=== PATIENT | female | born 1975 | race Caucasian/White ===

== ENCOUNTER 2019-07-06 04:04 | Emergency (ER) | payer OTHER, SELFPAY ==
[2019-07-06] MEDS ORDERED: ONDANSETRON 4 MG/2 ML VIAL ONE (04:27)
[2019-07-06] MEDS ORDERED: NA CHLORIDE 0.9% 1,000 ML ONE (04:27)
[2019-07-06 04:42] LABS: Absolute Lymphocytes (CBC) 1.3 K/uL (0.7-4.9); Basophils % 0.8 % (0-1.3); Hematocrit 39.5 % (36.0-45.0); Lymphocytes % 22.6 % (15.3-44.8); MPV 8.6 fL (7.6-11.3); RBC Red Blood Cell Count 4.41 M/uL (3.86-4.86)
[2019-07-06 04:56] LABS: Albumin 4.2 g/dL (3.4-5.0); Bilirubin Direct 0.2 mg/dL (0-0.2); Bilirubin Total 0.6 mg/dL (0.2-1.0); Potassium 3.7 mmol/L (3.5-5.1); Protein, Total 7.7 g/dL (6.4-8.2)
--- NOTE | 2019-07-06 05:38 | ER ---
Nurse's Notes [facility] Name: Autumn Bhandari Age: 43 yrs Sex: Female : 1975 Arrival Date: 07/06/2019 Time: 04:08 Bed 16 Private MD: Gavino Coffman E Diagnosis: Vomiting, unspecified;Diarrhea, unspecified Presentation: 07/06 04:18 Presenting complaint: Patient states: vomiting, diarrhea \T\ headache since night before aa1 last. Transition of care: patient was not received from another setting of care. Onset of symptoms was July 04, 2019 at 23:00. Risk Assessment: Do you want to hurt yourself or someone else? Patient reports no desire to harm self or others. Initial Sepsis Screen: Does the patient meet any 2 criteria? No. Patient's initial sepsis screen is negative. Does the patient have a suspected source of infection? No. Patient's initial sepsis screen is negative. Care prior to arrival: None. 04:18 Method Of Arrival: Ambulatory aa1 04:18 Acuity: FLETCHER 3 aa1 Triage Assessment: 04:20 General: Appears in no apparent distress. uncomfortable, Behavior is calm, cooperative, aa1 appropriate for age. Historical: - Allergies: 04:20 No Known Allergies; aa1 - Home Meds: 04:20 None [Active]; aa1 - PMHx: 04:20 None; aa1 - PSHx: 04:20 ectopic ; Tubal ligation; aa1 - Immunization history:: Flu vaccine is not up to date. - Social history:: Smoking status: Patient/guardian denies using tobacco. - Ebola Screening: : Patient denies exposure to infectious person Patient denies travel to an Ebola-affected area in the 21 days before illness onset. - Family history:: not pertinent. - Hospitalizations: : No recent hospitalization is reported. Screenin:32 Abuse screen: Denies threats or abuse. Denies injuries from another. Nutritional rr5 screening: No deficits noted. Tuberculosis screening: No symptoms or risk factors identified. Fall Risk IV access (20 points). Total Douglass Fall Scale indicates No Risk (0-24 pts). Assessment: 04:32 General: Appears in no apparent distress. uncomfortable, Behavior is calm, cooperative, rr5 appropriate for age. Pain: Complains of pain in abdomen Pain does not radiate. Pain currently is 3 out of 10 on a pain scale. Quality of pain is described as aching, Pain began gradually. Neuro: Level of Consciousness is awake, alert, obeys commands, Oriented to person, place, time, situation, Appropriate for age. Cardiovascular: Capillary refill < 3 seconds Patient's skin is warm and dry. Respiratory: Airway is patent Respiratory effort is even, unlabored, Respiratory pattern is regular, symmetrical. GI: Abdomen is round Reports lower abdominal pain, upper abdominal pain, cramping, nausea, vomiting. : No signs and/or symptoms were reported regarding the genitourinary system. EENT: No signs and/or symptoms were reported regarding the EENT system. Derm: Skin is intact, Skin temperature is warm. Musculoskeletal: Circulation, motion, and sensation intact. Capillary refill < 3 seconds. 04:59 Reassessment: Patient appears in no apparent distress at this time. Patient is alert, rr5 oriented x 3, equal unlabored respirations, skin warm/dry/pink. Patient states symptoms have improved. 05:35 Reassessment: complaining of nausea,ED provider aware with order made and carried out. rr5 see MAR. Patient states symptoms have not improved. 06:15 Reassessment: Patient appears in no apparent distress at this time. Patient is alert, rr5 oriented x 3, equal unlabored respirations, skin warm/dry/pink. discharge instruction given and explained without complaints made. Patient states feeling better. Patient states symptoms have improved. Vital Signs: 04:20 BP 108 / 73; Pulse 83; Resp 18; Temp 97.7; Pulse Ox 100% on R/A; Weight 54.43 kg; aa1 Height 5 ft. 3 in. (160.02 cm); Pain 7/10; 05:50 BP 92 / 59; Pulse 80; Resp 16; Pulse Ox 98% ; rr5 06:14 BP 102 / 64; Pulse 65; Resp 17; Temp 97.8; Pulse Ox 99% ; rr5 04:20 Body Mass Index 21.26 (54.43 kg, 160.02 cm) aa1 ED Course: 04:08 Patient arrived in ED. do 04:09 Gavino Coffman MD is Private Physician. do 04:16 Timothy Dempsey MD is Attending Physician. rn 04:19 Triage completed. aa1 04:20 Arm band placed on right wrist. aa1 04:23 Cameron Reyes, RN is Primary Nurse. rr5 04:25 Inserted saline lock: 20 gauge in left forearm, using aseptic technique. Blood rr5 collected. 04:25 No provider procedures requiring assistance completed. rr5 04:33 Patient has correct armband on for positive identification. Bed in low position. Call rr5 light in reach. Pulse ox on. NIBP on. 06:15 IV discontinued, intact, bleeding controlled, No redness/swelling at site. Pressure rr5 dressing applied. Administered Medications: 04:31 Drug: NS 0.9% 1000 ml Route: IV; Rate: 1000 ml; Site: left forearm; rr5 05:36 Follow up: Response: No adverse reaction; IV Status: Completed infusion; IV Intake: rr5 1000ml 04:31 Drug: Zofran 4 mg Route: IVP; Site: left forearm; rr5 05:36 Follow up: Response: No adverse reaction; Nausea is decreased rr5 05:49 Drug: Phenergan 12.5 mg Route: IVP; Site: left antecubital; rr5 06:16 Follow up: Response: No adverse reaction; Nausea is decreased rr5 Intake: 05:36 IV: 1000ml; Total: 1000ml. rr5 Outcome: 05:37 Discharge ordered by . rn 06:15 Discharged to home ambulatory. rr5 06:15 Condition: stable 06:15 Discharge instructions given to patient, Instructed on discharge instructions, follow up and referral plans. medication usage, Demonstrated understanding of instructions, follow-up care, medications, Prescriptions given X 1. 06:17 Patient left the ED. rr5 Signatures: Brionna Vivar RN RN aa1 Timothy Dempsey MD MD rn Ogletree, Danielle do Roque, Raymond, RN RN rr5
--- NOTE | 2019-07-06 05:39 | EDPHYS ---
Physician Documentation [facility] Name: Autumn Bhandari Age: 43 yrs Sex: Female : 1975 Arrival Date: 07/06/2019 Time: 04:08 Bed 16 Private MD: Gavino Coffman E ED Physician Timothy Dempsey HPI: 07/06 04:23 This 43 yrs old Female presents to ER via Ambulatory with complaints of rn Vomiting/Diarrhea, Headache. 04:23 The patient presents to the emergency department with nausea, vomiting, diarrhea. rn Onset: The symptoms/episode began/occurred 2 day(s) ago. Possible causes: unknown. The symptoms are aggravated by nothing. The symptoms are alleviated by nothing. Severity of symptoms: At their worst the symptoms were moderate in the emergency department the symptoms are unchanged. The patient has not experienced similar symptoms in the past. The patient has not recently seen a physician. Historical: - Allergies: 04:20 No Known Allergies; aa1 - Home Meds: 04:20 None [Active]; aa1 - PMHx: 04:20 None; aa1 - PSHx: 04:20 ectopic ; Tubal ligation; aa1 - Immunization history:: Flu vaccine is not up to date. - Social history:: Smoking status: Patient/guardian denies using tobacco. - Ebola Screening: : Patient denies exposure to infectious person Patient denies travel to an Ebola-affected area in the 21 days before illness onset. - Family history:: not pertinent. - Hospitalizations: : No recent hospitalization is reported. ROS: 04:23 Constitutional: Negative for fever, chills, and weight loss, Eyes: Negative for injury, rn pain, redness, and discharge, Neck: Negative for injury, pain, and swelling, Cardiovascular: Negative for chest pain, palpitations, and edema, Respiratory: Negative for shortness of breath, cough, wheezing, and pleuritic chest pain, Abdomen/GI: Negative for constipation MS/Extremity: Negative for injury and deformity, Skin: Negative for injury, rash, and discoloration, Neuro: Negative for numbness, tingling, and seizure. Exam: 04:23 Constitutional: This is a well developed, well nourished patient who is awake, alert, rn and in no acute distress. Head/Face: Normocephalic, atraumatic. Eyes: Pupils equal round and reactive to light, extra-ocular motions intact. Lids and lashes normal. Conjunctiva and sclera are non-icteric and not injected. Cornea within normal limits. Periorbital areas with no swelling, redness, or edema. ENT: MMM Neck: Trachea midline, no thyromegaly or masses palpated, and no cervical lymphadenopathy. Supple, full range of motion without nuchal rigidity, or vertebral point tenderness. No Meningismus. Cardiovascular: Regular rate and rhythm. No pulse deficits. Respiratory: No increased work of breathing, no retractions or nasal flaring. Abdomen/GI: soft, non-tender MS/ Extremity: Pulses equal, no cyanosis. Neurovascular intact. Full, normal range of motion. Equal circumference. Neuro: Awake and alert, GCS 15 Vital Signs: 04:20 BP 108 / 73; Pulse 83; Resp 18; Temp 97.7; Pulse Ox 100% on R/A; Weight 54.43 kg; aa1 Height 5 ft. 3 in. (160.02 cm); Pain 7/10; 05:50 BP 92 / 59; Pulse 80; Resp 16; Pulse Ox 98% ; rr5 06:14 BP 102 / 64; Pulse 65; Resp 17; Temp 97.8; Pulse Ox 99% ; rr5 04:20 Body Mass Index 21.26 (54.43 kg, 160.02 cm) aa1 MDM: 04:16 Patient medically screened. rn 05:37 Differential diagnosis: viral gastroenteritis, gastroenteritis. Differential diagnosis: rn gastritis. Data reviewed: vital signs, nurses notes. Data reviewed: lab test result(s), and as a result, I will discharge patient. Counseling: I had a detailed discussion with the patient and/or guardian regarding: the historical points, exam findings, and any diagnostic results supporting the discharge/admit diagnosis, lab results, the need for outpatient follow up, to return to the emergency department if symptoms worsen or persist or if there are any questions or concerns that arise at home. Response to treatment: the patient's symptoms have markedly improved after treatment, and as a result, I will discharge patient. Special discussion: Based on the patient's Hx, exam, and Dx evaluation, there is no indication for emergent surgery or inpatient Tx. It is understood by the patient/guardian that if the Sx's persist or worsen they need to return immediately for re-evaluation. I discussed with the patient/guardian in detail that at this point there is no indication for admission to the hospital. It is understood, however, that if the symptoms persist or worsen the patient needs to return immediately for re-evaluation. 07/06 04:20 Order name: Basic Metabolic Panel; Complete Time: 05:34 rn 07/06 04:20 Order name: CBC with Diff; Complete Time: 05: rn 07/06 04:20 Order name: Hepatic Function; Complete Time: 05: rn 07/06 04:20 Order name: Lipase; Complete Time: 05: rn 07/06 04:20 Order name: Flu; Complete Time: 05: rn 07/06 05:45 Order name: Urine Dipstick--Ancillary (enter results) 2 07/06 04:20 Order name: IV Saline Lock; Complete Time: 04:31 rn 07/06 04:20 Order name: Labs collected and sent; Complete Time: 04: rn 07/06 05:35 Order name: Urine Dipstick-Ancillary (obtain specimen); Complete Time: 05:49 rr5 07/06 05:35 Order name: Urine Test (obtain specimen); Complete Time: 05:49 rr5 07/06 05:45 Order name: Urine --Ancillary (enter results) mw2 Administered Medications: 04:31 Drug: NS 0.9% 1000 ml Route: IV; Rate: 1000 ml; Site: left forearm; rr5 05:36 Follow up: Response: No adverse reaction; IV Status: Completed infusion; IV Intake: rr5 1000ml 04:31 Drug: Zofran 4 mg Route: IVP; Site: left forearm; rr5 05:36 Follow up: Response: No adverse reaction; Nausea is decreased rr5 05:49 Drug: Phenergan 12.5 mg Route: IVP; Site: left antecubital; rr5 06:16 Follow up: Response: No adverse reaction; Nausea is decreased rr5 Disposition: 07/06/19 05:37 Discharged to Home. Impression: Vomiting, unspecified, Diarrhea, unspecified. - Condition is Stable. - Discharge Instructions: Diarrhea, Adult, Nausea and Vomiting, Adult. - Prescriptions for Zofran ODT 4 mg Oral tablet,disintegrating - place 1 tablet by TRANSLINGUAL route every 8 hours As needed; 20 tablet. - Medication Reconciliation Form, Thank You Letter, Antibiotic Education, Prescription Opioid Use form. - Follow up: Private Physician; When: As needed; Reason: Recheck today's complaints, Re-evaluation by your physician. - Problem is new. - Symptoms have improved. Signatures: Dispatcher [employer] EDMS Brionna Vivar RN RN aa1 Timothy Dempsey MD MD rn Roque, Raymond, RN RN rr5 Corrections: (The following items were deleted from the chart) 06:17 05:37 07/06/2019 05:37 Discharged to Home. Impression: Vomiting, unspecified; Diarrhea, rr5 unspecified. Condition is Stable. Forms are Medication Reconciliation Form, Thank You Letter, Antibiotic Education, Prescription Opioid Use. Follow up: Private Physician; When: As needed; Reason: Recheck today's complaints, Re-evaluation by your physician. Problem is new. Symptoms have improved. rn
[2019-07-06] MEDS ORDERED: PROMETHAZINE 25 MG/ML VIAL ONE (05:46)
[2019-07-06 06:40] VITALS: BP 102/64; TEMP 97.8; O2SAT 99
[2019-07-06 06:47] LABS: Urine Blood NEGATIVE (NEG); Urine Glucose NEGATIVE (NEG); Urine Protein NEGATIVE (NEG); Urine Specific Gravity >1.030 (1.005-1.030); Urine pH 5.5 (5.0-7.0)
== END 2019-07-06 06:17 | disposition home or self-care (01) ==
LOC: ER 04:04
DX: R19.7 Diarrhea, unspecified (principal)
CPT/HCPCS: 36415; 80048; 80076; 81003; 81025; 83690; 85025; 87804; 96361; 96374; 96375; 99284; J2405; J2550; J7030

== ENCOUNTER 2019-10-06 04:15 | Emergency (ER) | payer SELFPAY ==
[2019-10-06] MEDS ORDERED: NA CHLORIDE 0.9% 1,000 ML ONE ×2 (04:35→05:01)
[2019-10-06] MEDS ORDERED: ONDANSETRON 4 MG/2 ML VIAL ONE (04:38)
[2019-10-06] MEDS ORDERED: MORPHINE 2 MG/ML SYR ONE (05:01)
[2019-10-06 05:08] LABS: Basophils % 0.6 % (0-1.3); Hematocrit 42.1 % (36.0-45.0); Lymphocytes % 14.7 % (15.3-44.8); MPV 8.7 fL (7.6-11.3); RBC Red Blood Cell Count 4.73 M/uL (3.86-4.86)
[2019-10-06 05:21] LABS: ALT/SGPT 24 U/L (12-78); AST/SGOT 20 U/L (15-37); Albumin 3.6 g/dL (3.4-5.0); Alkaline Phosphatase 51 U/L (45-117); BUN Blood Urea Nitrogen 11 mg/dL (7-18); Bicarbonate 25 mmol/L (21-32); Bilirubin Direct < 0.1 mg/dL (0-0.2); Bilirubin Total 0.3 mg/dL (0.2-1.0); Glucose Level 107 mg/dL (74-106); Lipase 66 U/L (73-393); Potassium 3.3 mmol/L (3.5-5.1); Protein, Total 7.3 g/dL (6.4-8.2); Sodium Level 137 mmol/L (136-145)
--- NOTE | 2019-10-06 06:08 | EDPHYS ---
Physician Documentation [facility] Name: Autumn Bhandari Age: 44 yrs Sex: Female : 1975 Arrival Date: 10/06/2019 Time: 04:15 Bed 15 Private MD: ED Physician Roberto Butler HPI: 10/06 04:48 This 44 yrs old Female presents to ER via Unassigned with complaints of cesia Vomiting/Diarrhea. 04:48 The patient presents to the emergency department with nausea, vomiting. Onset: The cesia symptoms/episode began/occurred 3 day(s) ago. Possible causes: unknown. The symptoms are aggravated by nothing. The symptoms are alleviated by nothing. Associated signs and symptoms: The patient has no apparent associated signs or symptoms. Severity of symptoms: At their worst the symptoms were mild moderate in the emergency department the symptoms are unchanged. The patient has not experienced similar symptoms in the past. 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 - Social history:: Smoking status: Patient/guardian denies using tobacco. - Family history:: not pertinent. - Ebola Screening: : No symptoms or risks identified at this time. ROS: 04:49 Constitutional: Negative for fever, chills, and weight loss, Eyes: Negative for injury, cesia pain, redness, and discharge, ENT: Negative for injury, pain, and discharge, Neck: Negative for injury, pain, and swelling, Cardiovascular: Negative for chest pain, palpitations, and edema, Respiratory: Negative for shortness of breath, cough, wheezing, and pleuritic chest pain, Back: Negative for injury and pain, : Negative for injury, bleeding, discharge, and swelling, MS/Extremity: Negative for injury and deformity, Skin: Negative for injury, rash, and discoloration, Neuro: Negative for headache, weakness, numbness, tingling, and seizure, Psych: Negative for depression, anxiety, suicide ideation, homicidal ideation, and hallucinations, Allergy/Immunology: Negative for hives, rash, and allergies, Endocrine: Negative for neck swelling, polydipsia, polyuria, polyphagia, and marked weight changes, Hematologic/Lymphatic: Negative for swollen nodes, abnormal bleeding, and unusual bruising. 04:49 Abdomen/GI: Positive for abdominal pain, nausea and vomiting, diarrhea. Exam: 04:49 Constitutional: This is a well developed, well nourished patient who is awake, alert, cesia and in no acute distress. Head/Face: Normocephalic, atraumatic. Eyes: Pupils equal round and reactive to light, extra-ocular motions intact. Lids and lashes normal. Conjunctiva and sclera are non-icteric and not injected. Cornea within normal limits. Periorbital areas with no swelling, redness, or edema. ENT: Nares patent. No nasal discharge, no septal abnormalities noted. Tympanic membranes are normal and external auditory canals are clear. Oropharynx with no redness, swelling, or masses, exudates, or evidence of obstruction, uvula midline. Mucous membranes moist. Neck: Trachea midline, no thyromegaly or masses palpated, and no cervical lymphadenopathy. Supple, full range of motion without nuchal rigidity, or vertebral point tenderness. No Meningismus. Chest/axilla: Normal chest wall appearance and motion. Nontender with no deformity. No lesions are appreciated. Cardiovascular: Regular rate and rhythm with a normal S1 and S2. No gallops, murmurs, or rubs. Normal PMI, no JVD. No pulse deficits. Respiratory: Lungs have equal breath sounds bilaterally, clear to auscultation and percussion. No rales, rhonchi or wheezes noted. No increased work of breathing, no retractions or nasal flaring. Abdomen/GI: Soft, non-tender, with normal bowel sounds. No distension or tympany. No guarding or rebound. No evidence of tenderness throughout. Back: No spinal tenderness. No costovertebral tenderness. Full range of motion. Skin: Warm, dry with normal turgor. Normal color with no rashes, no lesions, and no evidence of cellulitis. MS/ Extremity: Pulses equal, no cyanosis. Neurovascular intact. Full, normal range of motion. Neuro: Awake and alert, GCS 15, oriented to person, place, time, and situation. Cranial nerves II-XII grossly intact. Motor strength 5/5 in all extremities. Sensory grossly intact. Cerebellar exam normal. Normal gait. Psych: Awake, alert, with orientation to person, place and time. Behavior, mood, and affect are within normal limits. Vital Signs: 04:46 BP 106 / 73; Pulse 84; Resp 18; Temp 98.1; Pulse Ox 100% on R/A; Weight 52.16 kg; ea Height 5 ft. 3 in. (160.02 cm); Pain 7/10; 06:14 BP 101 / 70; Pulse 68; Resp 18; Pulse Ox 100% on R/A; Pain 2/10; lc1 07:00 BP 107 / 65; Pulse 65; Resp 18; Temp 97.8; Pulse Ox 100% on R/A; ea 04:46 Body Mass Index 20.37 (52.16 kg, 160.02 cm) MDM: 04:23 Patient medically screened. [facility] 04:50 Data reviewed: vital signs, nurses notes, lab test result(s), radiologic studies, plain cesia films. 10/06 04:25 Order name: Basic Metabolic Panel; Complete Time: 05:56 [facility] 10/06 04:25 Order name: CBC with Diff; Complete Time: 05:56 [facility] 10/06 04:25 Order name: Creatinine for Radiology; Complete Time: 05:56 [facility] 10/06 04:25 Order name: Hepatic Function; Complete Time: 05:56 [facility] 10/06 04:25 Order name: Lipase; Complete Time: 05:56 [facility] 10/06 04:48 Order name: Abdomen 1 View (KUB) XRAY [facility] 10/06 04:25 Order name: IV Saline Lock; Complete Time: 05:20 [facility] 10/06 04:25 Order name: Labs collected and sent; Complete Time: 05:21 [facility] Administered Medications: 04:45 Drug: Zofran 4 mg Route: IVP; Site: right antecubital; ea 06:16 Follow up: Response: No adverse reaction lc1 04:45 Drug: NS 0.9% 1000 ml Route: IV; Rate: 1 bolus; Site: right antecubital; ea 06:16 Follow up: Response: No adverse reaction; IV Status: Completed infusion lc1 05:10 Drug: morphine 2 mg Route: IVP; Site: right antecubital; lc1 06:16 Follow up: Response: No adverse reaction lc1 05:15 Drug: NS 0.9% 1000 ml Route: IV; Rate: 1 bolus; Site: right antecubital; lc1 07:07 Follow up: Response: No adverse reaction; IV Status: Completed infusion lc1 Disposition: 10/06/19 06:07 Discharged to Home. Impression: Vomiting, Diarrhea, unspecified, Abdominal tenderness, Hypokalemia. - Condition is Stable. - Discharge Instructions: Abdominal Pain, Adult, Food Choices to Help Relieve Diarrhea, Adult, Potassium Content of Foods, Nausea and Vomiting, Adult, Nausea and Vomiting, Adult, [id number], Abdominal Pain, Adult, [id number], Hypokalemia. - Prescriptions for Bentyl 20 mg Oral Tablet - take 1 tablet by ORAL route every 6 hours As needed; 20 tablet. Pepcid 20 mg Oral Tablet - take 1 tablet by ORAL route every 12 hours for 10 days; 20 tablet. Zofran 4 mg Oral Tablet - take 1 tablet by ORAL route every 12 hours As needed; 20 tablet. - Medication Reconciliation Form, Thank You Letter, Antibiotic Education, Prescription Opioid Use form. - Follow up: Private Physician; When: 2 - 3 days; Reason: Recheck today's complaints, Continuance of care, Re-evaluation by your physician. - Problem is new. - Symptoms have improved. Signatures: Dispatcher [employer] EDMS Roberto Butler MD MD cha Calhoun, Lisa 1 Tiffanie Harley RN RN ea Corrections: (The following items were deleted from the chart) 07:14 06:07 10/06/2019 06:07 Discharged to Home. Impression: Vomiting; Diarrhea, unspecified; ea Abdominal tenderness; Hypokalemia. Condition is Stable. Discharge Instructions: Abdominal Pain, Adult, Food Choices to Help Relieve Diarrhea, Adult, Nausea and Vomiting, Adult, Nausea and Vomiting, Adult, [id number], Abdominal Pain, Adult, [id number]. Prescriptions for Bentyl 20 mg Oral Tablet - take 1 tablet by ORAL route every 6 hours As needed; 20 tablet, Pepcid 20 mg Oral Tablet - take 1 tablet by ORAL route every 12 hours for 10 days; 20 tablet, Zofran 4 mg Oral Tablet - take 1 tablet by ORAL route every 12 hours As needed; 20 tablet. and Forms are Medication Reconciliation Form, Thank You Letter, Antibiotic Education, Prescription Opioid Use. Follow up: Private Physician; When: 2 - 3 days; Reason: Recheck today's complaints, Continuance of care, Re-evaluation by your physician. Problem is new. Symptoms have improved. cesia
--- NOTE | 2019-10-06 06:08 | ER ---
Nurse's Notes [facility] Name: Autumn Bhandari Age: 44 yrs Sex: Female : 1975 Arrival Date: 10/06/2019 Time: 04:15 Bed 15 Private MD: Diagnosis: Vomiting;Diarrhea, unspecified;Abdominal tenderness;Hypokalemia Presentation: 10/06 04:30 Presenting complaint: Patient states: Reports having abdominal pain with N/V/D since ea the Oct 03. Transition of care: patient was not received from another setting of care. Onset of symptoms was October 06, 2019. Risk Assessment: Do you want to hurt yourself or someone else? Patient reports no desire to harm self or others. Initial Sepsis Screen: Does the patient meet any 2 criteria? No. Patient's initial sepsis screen is negative. Does the patient have a suspected source of infection? No. Patient's initial sepsis screen is negative. Care prior to arrival: None. 04:30 Method Of Arrival: Ambulatory ea 04:30 Acuity: FLETCHER 3 ea Triage Assessment: 04:30 General: Appears uncomfortable, Behavior is restless. Pain: Complains of pain in right ea lower quadrant and left lower quadrant Quality of pain is described as crampy. GI: Reports diarrhea, nausea, vomiting. 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 - Social history:: Smoking status: Patient/guardian denies using tobacco. - Family history:: not pertinent. - Ebola Screening: : No symptoms or risks identified at this time. Screenin:21 Abuse screen: Denies threats or abuse. Nutritional screening: No deficits noted. ea Tuberculosis screening: No symptoms or risk factors identified. Fall Risk None identified. Assessment: 05:00 General: Appears distressed, uncomfortable, Behavior is calm, cooperative. Pain: lc1 Complains of pain in abdomen and left lower quadrant and right lower quadrant. Neuro: No deficits noted. Cardiovascular: No deficits noted. Respiratory: No deficits noted. GI: Abdomen is round Reports. 05:00 Pain: Pain does not radiate. Pain currently is 5 out of 10 on a pain scale. lc1 05:00 GI: Reports diarrhea, vomiting, since 10/03. : No signs and/or symptoms were reported lc1 regarding the genitourinary system. EENT: No signs and/or symptoms were reported regarding the EENT system. Derm: No signs and/or symptoms reported regarding the dermatologic system. Musculoskeletal: No signs and/or symptoms reported regarding the musculoskeletal system. 06:00 Reassessment: Patient and/or family updated on plan of care and expected duration. Pain lc1 level reassessed. Patient is alert, oriented x 3, equal unlabored respirations, skin warm/dry/pink. Patient states feeling better. 07:00 Reassessment: Patient and/or family updated on plan of care and expected duration. Pain ea level reassessed. Patient is alert, oriented x 3, equal unlabored respirations, skin warm/dry/pink. Discharge instruction given to patient, verbalized the understanding of instruction. Pt left ED ambulatory tolerating well. Patient denies pain at this time. Patient states feeling better. Vital Signs: 04:46 BP 106 / 73; Pulse 84; Resp 18; Temp 98.1; Pulse Ox 100% on R/A; Weight 52.16 kg; ea Height 5 ft. 3 in. (160.02 cm); Pain 7/10; 06:14 BP 101 / 70; Pulse 68; Resp 18; Pulse Ox 100% on R/A; Pain 2/10; lc1 07:00 BP 107 / 65; Pulse 65; Resp 18; Temp 97.8; Pulse Ox 100% on R/A; ea 04:46 Body Mass Index 20.37 (52.16 kg, 160.02 cm) ea ED Course: 04:15 Patient arrived in ED. ds1 04:23 Roberto Butler MD is Attending Physician. cesia 04:30 Inserted saline lock: 20 gauge in right antecubital area, using aseptic technique. ea Blood collected. 04:50 Arm band placed on right wrist. Patient placed in an exam room, on a stretcher, on ea pulse oximetry. 04:50 Patient has correct armband on for positive identification. Placed in gown. Bed in low ea position. Call light in reach. Side rails up X2. 05:13 Tiffanie Harley, RN is Primary Nurse. ea 05:18 Abdomen 1 View (KUB) XRAY In Process Unspecified. EDMS 05:26 Triage completed. ea 06:00 No provider procedures requiring assistance completed. IV discontinued, intact, lc1 bleeding controlled, Pressure dressing applied. Administered Medications: 04:45 Drug: Zofran 4 mg Route: IVP; Site: right antecubital; ea 06:16 Follow up: Response: No adverse reaction lc1 04:45 Drug: NS 0.9% 1000 ml Route: IV; Rate: 1 bolus; Site: right antecubital; ea 06:16 Follow up: Response: No adverse reaction; IV Status: Completed infusion lc1 05:10 Drug: morphine 2 mg Route: IVP; Site: right antecubital; lc1 06:16 Follow up: Response: No adverse reaction lc1 05:15 Drug: NS 0.9% 1000 ml Route: IV; Rate: 1 bolus; Site: right antecubital; lc1 07:07 Follow up: Response: No adverse reaction; IV Status: Completed infusion lc1 Outcome: 06:00 Discharged to home ambulatory. 1 06:00 Condition: good 06:00 Discharge instructions given to patient. 06:07 Discharge ordered by . cesia 07:14 Patient left the ED. ea Signatures: Dispatcher [employer] EDMS Roberto Butler MD MD cha Sanford, Savita ds1 Maddie, Bernice lc1 Tiffanie Harley, ANTONINA RN mickey Corrections: (The following items were deleted from the chart) 06:00 05:53 General: Appears distressed, uncomfortable, Behavior is calm, cooperative, lc1 lc1 06:00 05:53 Pain: Complains of pain in abdomen and left lower quadrant and right lower lc1 quadrant lc1 06:00 05:53 Neuro: No deficits noted. lc1 lc1 06:00 05:53 Cardiovascular: No deficits noted. lc1 lc1 06:00 05:53 Respiratory: No deficits noted. lc1 lc1 06:00 05:53 GI: Abdomen is round Reports lc1 lc1
[2019-10-06 07:30] VITALS: TEMP 98.1; O2SAT 100
[2019-10-06 07:33] VITALS: BP 101/70
--- NOTE | 2019-10-06 08:28 | RAD REPORT ---
EXAM DESCRIPTION: RAD - Abdomen 1 View (KUB) - 10/06/2019 5:17 am CLINICAL HISTORY: ABD PAIN Pain COMPARISON: No comparisons FINDINGS: The bowel gas pattern is non-obstructive. Reidel hepatic lobe variant likely present. No e vidence of free air or pneumatosis. No suspicious calcifications. No significant bony findings. IMPRESSION: Negative examination.
== END 2019-10-06 07:14 | disposition home or self-care (01) ==
LOC: ER 04:15
DX: E87.6 Hypokalemia (principal); R19.7 Diarrhea, unspecified; R10.819 Abdominal tenderness, unspecified site
CPT/HCPCS: 36415; 74018; 80048; 80076; 83690; 85025; 96361; 96374; 96375; 99284; J2270; J2405; J7030

== ENCOUNTER 2022-03-24 07:35 | Emergency (ER) | payer SELFPAY ==
[2022-03-24] MEDS ORDERED: ONDANSETRON 4 MG (ODT) TAB ONE (08:19)
[2022-03-24] MEDS ORDERED: IBUPROFEN 200 MG TAB PO ONE (08:45)
--- NOTE | 2022-03-24 09:08 | RAD REPORT ---
EXAM DESCRIPTION: Cameron Single View03/24/2022 9:01 am CLINICAL HISTORY: Chest pain COMPARISON: none FINDINGS: Lungs are moderately hyperaerated. The lungs appear clear of acute infiltrate. The heart is normal size IMPRESSION: No acute abnormalities displayed
--- NOTE | 2022-03-24 11:52 | EDPHYS ---
Physician Documentation [facility] Name: Autumn Bhandari Age: 46 yrs Sex: Female : 1975 Arrival Date: 03/24/2022 Time: 07:38 Bed 5 Private MD: ED Physician Timothy Dempsey HPI: 03/24 09:27 This 46 yrs old Female presents to ER via Ambulatory with complaints of Vomiting, Body rn Aches. 09:27 The patient presents to the emergency department with nausea, vomiting. rn 09:27 Onset: The symptoms/episode began/occurred yesterday. Possible causes: sick contacts, rn by family, daughter. The symptoms are aggravated by nothing. The symptoms are alleviated by nothing. Associated signs and symptoms: Pertinent positives: nausea, vomiting, myalgia, fatigue. Severity of symptoms: At their worst the symptoms were mild in the emergency department the symptoms are unchanged. The patient has not experienced similar symptoms in the past. The patient has not recently seen a physician. Pt reports daughter tested positive for COVID, patient began with nausea/vomiting/myalgias/fatigue yesterday. Thinks might have COVID. Denies sob or chest pain.. 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 - Social history:: Smoking status: Patient denies any tobacco usage or history of. - Family history:: not pertinent. - Hospitalizations: : No recent hospitalization is reported. ROS: 09:27 Constitutional: Negative for chills, and weight loss Eyes: Negative for injury, pain, rn redness, and discharge, ENT: Negative for injury, pain, and discharge, Neck: Negative for injury, pain, and swelling, Cardiovascular: Negative for chest pain, palpitations, and edema, Respiratory: Negative for shortness of breath, cough, wheezing, and pleuritic chest pain, Abdomen/GI: + nausea/vomiting MS/Extremity: Negative for injury and deformity, Skin: Negative for injury, rash, and discoloration, Neuro: + generalized weakness, negative for focal neurological complaints. 09:27 All other systems are negative. Exam: 09:27 Constitutional: This is a well developed, well nourished patient who is awake, alert, rn and in no acute distress. Ambulatory to room without difficulty or assistance. Head/Face: Normocephalic, atraumatic. Eyes: Pupils equal round and reactive to light, extra-ocular motions intact. Lids and lashes normal. Conjunctiva and sclera are non-icteric and not injected. Cornea within normal limits. Periorbital areas with no swelling, redness, or edema. Cardiovascular: Regular rate and rhythm. No pulse deficits. Respiratory: Speaking full sentences, unlabored. No increased work of breathing, no retractions or nasal flaring. Abdomen/GI: Soft, non-tender Skin: Warm, dry with normal turgor. Normal color with no rashes, no lesions, and no evidence of cellulitis. MS/ Extremity: Pulses equal, no cyanosis. Neurovascular intact. Full, normal range of motion. Equal circumference. Neuro: Awake and alert, GCS 15, oriented to person, place, time, and situation. Cranial nerves II-XII grossly intact. Motor strength 5/5 in all extremities. Sensory grossly intact. Cerebellar exam normal. Normal gait. Vital Signs: 07:55 BP 122 / 70; Pulse 97; Resp 16; Temp 98.7(O); Pulse Ox 100% on R/A; Weight 54.43 kg; vg1 Height 5 ft. 4 in. (162.56 cm); Pain 8/10; 11:04 BP 100 / 62; Pulse 98; Resp 12 S; Pulse Ox 97% on R/A; jg9 07:55 Body Mass Index 20.60 (54.43 kg, 162.56 cm) vg1 MDM: 07:43 Patient medically screened. rn 11:51 Differential diagnosis: viral syndrome, flu, COVID. Data reviewed: vital signs, nurses rn notes, lab test result(s), radiologic studies, plain films, and as a result, I will discharge patient. Counseling: I had a detailed discussion with the patient and/or guardian regarding: the historical points, exam findings, and any diagnostic results supporting the discharge/admit diagnosis, lab results, radiology results, the need for outpatient follow up, to return to the emergency department if symptoms worsen or persist or if there are any questions or concerns that arise at home. Special discussion: I discussed with the patient/guardian in detail that at this point there is no indication for admission to the hospital. It is understood, however, that if the symptoms persist or worsen the patient needs to return immediately for re-evaluation. 03/24 07:44 Order name: SARS-COV-2 RT PCR (Document "Date of Onset" if Symptomatic); Complete Time: rn 11:50 03/24 07:44 Order name: Flu; Complete Time: 10:05 rn 03/24 07:57 Order name: XRAY Chest (1 view); Complete Time: 10:05 rn Administered Medications: 08:15 Drug: Zofran (Ondansetron) 4 mg Route: PO; [facility] 11:02 Follow up: Response: No adverse reaction jg9 08:41 Drug: Motrin (ibuprofen) Suspension 10 mg/kg Route: PO; [facility] 11:02 Follow up: Response: No adverse reaction jg9 Disposition Summary: 03/24/22 11:52 Discharge Ordered Location: Home rn Problem: new rn Symptoms: have improved rn Condition: Stable rn Diagnosis - SARS-associated coronavirus as the cause of diseases classified elsewhere rn Followup: rn - With: Private Physician - When: As needed - Reason: Recheck today's complaints, Re-evaluation by your physician Discharge Instructions: - Discharge Summary Sheet rn - COVID-19 rn Forms: - Medication Reconciliation Form rn - Thank You Letter rn - Antibiotic learning and development consultant - Prescription Opioid Use rn Prescriptions: - PAXLOVID - take 1 tablet by ORAL route 2 times per day for 5 days; 10 tablet; Refills: 0, rn Product Selection Permitted Signatures: Dispatcher [employer] Timothy Bazan MD MD rn Garcia, Victoria RN RN vg1 Mary Addison RN RN jh6 Mary Lawler RN jg9
--- NOTE | 2022-03-24 11:52 | ER ---
Nurse's Notes [facility] Name: Autumn Bhandari Age: 46 yrs Sex: Female : 1975 Arrival Date: 03/24/2022 Time: 07:38 Bed 5 Private MD: Diagnosis: SARS-associated coronavirus as the cause of diseases classified elsewhere Presentation: 03/24 07:55 Chief complaint: Patient states: body aches, N/V, lower back and lower ABD pain since vg1 last night and SOB; states daughter tested positive for Covid on Thursday. Coronavirus screen: Vaccine status: Patient reports being unvaccinated. Client denies travel out of the [place] in the last 14 days. Ebola Screen: Patient denies exposure to infectious person. Patient denies travel to an Ebola-affected area in the 21 days before illness onset. Initial Sepsis Screen: Does the patient meet any 2 criteria? No. Patient's initial sepsis screen is negative. Does the patient have a suspected source of infection? No. Patient's initial sepsis screen is negative. Risk Assessment: Do you want to hurt yourself or someone else? Patient reports no desire to harm self or others. Onset of symptoms was March 23, 2022. 07:55 Method Of Arrival: Ambulatory 1 07:55 Acuity: FLETCHER 3 vg1 Triage Assessment: 07:57 General: Appears uncomfortable, Behavior is cooperative, anxious, crying. Pain: vg1 Complains of pain in generalize body Pain currently is 8 out of 10 on a pain scale. GI: Reports nausea, vomiting. 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 - Social history:: Smoking status: Patient denies any tobacco usage or history of. - Family history:: not pertinent. - Hospitalizations: : No recent hospitalization is reported. Screenin:10 Abuse screen: Denies threats or abuse. Nutritional screening: No deficits noted. 6 Tuberculosis screening: No symptoms or risk factors identified. Fall Risk None identified. Assessment: 08:10 General: Appears uncomfortable, Behavior is calm, cooperative. jh6 08:10 Respiratory: Reports cough that is non-productive, Airway is patent Breath sounds are jh6 clear. GI: Abdomen is flat, Bowel sounds present X 4 quads. Abd is soft Abdomen is tender to palpation X 4 quads. 11:03 Reassessment: No changes from previously documented assessment. Patient and/or family jg9 updated on plan of care and expected duration. Pain level reassessed. Patient is alert, oriented x 3, equal unlabored respirations, skin warm/dry/pink. 11:45 Reassessment: Patient reports that she is leaving because we are not doing anything for jg9 her and she is tired of waiting on results, patient advised that she should wait and the results will be processed soon, patient jumped up out of bed grabbed her belongings and left, asking on the way out if she would be able to get her results later, I advised her to call later-charge nurse notified. Vital Signs: 07:55 BP 122 / 70; Pulse 97; Resp 16; Temp 98.7(O); Pulse Ox 100% on R/A; Weight 54.43 kg; vg1 Height 5 ft. 4 in. (162.56 cm); Pain 8/10; 11:04 BP 100 / 62; Pulse 98; Resp 12 S; Pulse Ox 97% on R/A; jg9 07:55 Body Mass Index 20.60 (54.43 kg, 162.56 cm) vg1 ED Course: 07:38 Patient arrived in ED. rg4 07:43 Timothy Dempsey MD is Attending Physician. rn 07:54 Mary Addison RN is Primary Nurse. jh6 07:57 Triage completed. vg1 07:57 Arm band placed on. vg1 08:10 Bed in low position. Call light in reach. Side rails up X 1. jh6 08:10 No provider procedures requiring assistance completed. jh6 08:10 COVID swab sent to lab. Flu and/or RSV swab sent to lab. jh6 09:03 XRAY Chest (1 view) In Process Unspecified. EDMS 11:03 No apparent distress. Resting quietly. Awaiting lab results, Awaiting: patient updated jg9 on delay-awaiting lab results. Administered Medications: 08:15 Drug: Zofran (Ondansetron) 4 mg Route: PO; jh6 11:02 Follow up: Response: No adverse reaction jg9 08:41 Drug: Motrin (ibuprofen) Suspension 10 mg/kg Route: PO; jh6 11:02 Follow up: Response: No adverse reaction jg9 Outcome: 11:52 Discharge ordered by . rn 12:18 Eloped after seeing physician Time discovered patient gone: March 24, 2022 at 12:00 jg9 12:18 unknown 12:22 Patient left the ED. jg9 Signatures: Dispatcher [employer] EDMS Timothy Dempsey MD MD rn Garcia, Ashwini powers4 Kate Grace RN RN vg1 Mary Addison RN RN jh6 Mary Lawler RN RN jg9 Corrections: (The following items were deleted from the chart) 12:22 12:00 Reassessment: Patient reports that she is leaving because we are not doing jg9 anything for her and she is tired of waiting on results, patient advised that she should wait and the results will be processed soon, patient jumped up out of bed grabbed her belongings and left, asking on the way out if she would be able to get her results later, I advised her to call later-charge nurse notified. jg9
[2022-03-24 12:31] VITALS: TEMP 98.7
[2022-03-24 12:33] VITALS: BP 100/62; O2SAT 97
== END 2022-03-24 12:22 | disposition home or self-care (01) ==
LOC: ER 07:35
DX: U07.1 COVID-19 (principal); B97.29 Other coronavirus as the cause of diseases classified elsewhere
CPT/HCPCS: 71045; 87804; 99283; U0003

== ENCOUNTER 2025-07-08 12:14 | Emergency (ER) | payer SELFPAY ==
--- OUTSIDE RECORDS SUMMARY | 2025-07-08 12:20 | XMS REPORT | Continuity of Care Document ---
Author Name Unknown Address [address] [facility] [address] [place] [address] [facility] Address [address] [facility] [address] [place] [address] Care Team Providers Care Capacity Planning Analyst Name Role Phone PCP, PATIENT DOES NOT HAVE A Primary Care Physic elías Unavailable Dipika Celaya Attending Clinician Patti Roca Attending Clinician ELIZABETH Delvalle Attending Clinician ELIZABETH Galan Attending Clinician Reji yadav Physician, No Primary or Family Admitting Clinic elías Unavailable Payers Payer Name Policy Type Policy Number Effective Date Expirati on Date Source [facility]LY [facility] STAR [id number] 2014 00:00:00 Problems Condition Name Condition Details Condition Category Status Onset Date Resolution Date Last Treatment Date Treating Clinician Comments Source Elderly multigravi da with antepartum condition or complicati on Elderly multigravi da with antepartum condition or complicati on Disease Active 04-18 00:00: 00 [facility] with history of ectopic with history of ectopic Disease Active 04-18 00:00: 00 [facility] Spotting in Spotting in Disease Active 04-18 00:00: 00 [facility] Allergies, Adverse Reactions, Alerts Allergy Name Allergy Type Status Severity Reaction(s) Onset Date Inactive Date Treating Clinician Comments Source medroxyp rogester one Propensi ty to adverse reaction to drug Active 04-25 00:00: 00 Mumtaz Maldonado No Known Allergie s DA Active U 04-23 00:00: 00 [facility] NO KNOWN ALLERGIE S Drug Class Active [facility] Social History Social Habit Start Date Stop Date Quantity Comments Source ASSERTION Not [facility]olic [facility] intake 2025-04-23 00:00:00 2025-04-23 00:00:00 Current non-drinker of alcohol (finding) [facility] History of Social function 2025-04-23 00:00:00 2025-04-23 00:00:00 [facility] Tobacco use and exposure 2014-04-18 00:00:00 2014-04-18 00:00:00 Smokeless tobacco non-user [facility] Sex assigned at 1975 00:00:00 1975 00:00:00 [facility] Smoking Status Start Date Stop Date Source Never smoked tobacco [facility] Medications Ordered Medication Name Filled Medication Name Start Date Stop Date Current Medication? Ordering Clinician Indication Dosage Frequency Signature (SIG) Comments Components Source albuterol sulfate HFA 90 mcg/actuati on aerosol inhaler 04-19 00:00: 00 Yes 1mcg/ac tuation Mumtaz Maldonado Augmentin 500 mg-125 mg tablet 04-19 00:00: 00 Yes 1mg Mumtaz Maldonado Flonase Allergy Relief 50 mcg/actuati on nasal spray,suspe nsion 04-19 00:00: 00 Yes 12mcg/a ctuatio n Mumtaz Maldonado Bromfed DM 2 mg-30 mg-10 mg/5 mL oral syrup 04-19 00:00: 00 Yes 10mg/5 mL Mumtaz Maldonado medroxyprog esterone 150 mg/mL intramuscul ar syringe 04-17 00:00: 00 Yes 1mg/mL Mumtaz Maldonado albuterol sulfate HFA 90 mcg/actuati on aerosol inhaler 04-10 00:00: 00 Yes 1mcg/ac tuation Mumtaz Maldonado montelukast 10 mg tablet 04-04 00:00: 00 Yes 1mg Mumtaz Maldonado doxycycline monohydrate 100 mg capsule 04-04 00:00: 00 Yes 1mg Mumtaz Maldonado promethazin e-DM 6.25 mg-15 mg/5 mL oral syrup 04-04 00:00: 00 Yes 5mg/5 mL Mumtaz Maldonado ondansetron HCl 8 mg tablet 03-25 00:00: 00 Yes 1mg Mumtaz Maldonado PNV Comb #2-Iron-Ome ga 3-FA (TRUST DHA) 29-1-250 mg Cmpk 04-21 00:00: 00 Yes 1{tbl} Take 1 Tab by mouth daily. [facility] Immunizations Ordered Immunization Name Filled Immunization Name Date Status Comments Source TDAP 2012-10-12 00:00:00 Completed [place] 2012-07-30 00:00:00 Completed Vital Signs Vital Name Observation Time Observation Value Comments S ource Systolic blood pressure 2025-04-23 18:50:43 123 mm[Hg] [facility] Diastolic blood pressure 2025-04-23 18:50:43 78 mm[Hg] [facility] Heart rate 2025-04-23 18:50:43 94 /min [facility] Body temperature 2025-04-23 18:50:43 36.89 Lilli [facility] Respiratory rate 2025-04-23 18:50:43 14 /min [facility] Body height 2025-04-23 18:50:43 160 cm [facility] Body weight 2025-04-23 18:50:43 49.896 kg [facility] BMI 2025-04-23 18:50:43 19.49 kg/m2 [facility] Oxygen saturation in Arterial blood by Pulse oximetry 2025-04-23 18:50:43 100 /min [facility] BP Systolic 2025-05-03 11:37:00 134 mm[Hg] Step hen F Joel BP Diastolic 2025-05-03 11:37:00 79 mm[Hg] [place] phen [facility] Joel Weight Measured 2025-05-03 11:37:00 112.20 pounds Mumtaz F Joel Height Measured 2025-05-03 11:37:00 63.00 inches Mumtaz F Joel Body Temperature 2025-05-03 11:37:00 97.50 degrees Mumtaz F Joel Heart Rate 2025-05-03 11:37:00 68.00 /min Darline en F Joel Respiratory Rate 2025-05-03 11:37:00 16.00 /min Mumtaz F Joel BP Systolic 2025-04-26 16:04:00 115 mm[Hg] Step hen F Joel BP Diastolic 2025-04-26 16:04:00 73 mm[Hg] [place] phen F Joel Weight Measured 2025-04-26 16:04:00 112.80 pounds Mumtaz F Joel Height Measured 2025-04-26 16:04:00 63.00 inches Mumtaz F Joel Body Temperature 2025-04-26 16:04:00 98.10 degrees Mumtaz F Joel Heart Rate 2025-04-26 16:04:00 64.00 /min Darline en F Joel Respiratory Rate 2025-04-26 16:04:00 Mumtaz F Ojel BP Systolic 2025-04-25 15:06:00 130 mm[Hg] Step hen F Joel BP Diastolic 2025-04-25 15:06:00 78 mm[Hg] [place] phen F Joel Weight Measured 2025-04-25 15:06:00 111.60 pounds Mumtaz F Joel Height Measured 2025-04-25 15:06:00 63.00 inches Mumtaz F Joel Body Temperature 2025-04-25 15:06:00 83.10 degrees Mumtaz F Joel Heart Rate 2025-04-25 15:06:00 64.00 /min Darline en F Joel Respiratory Rate 2025-04-25 15:06:00 Mumtaz F Joel BP Systolic 2025-04-25 15:03:00 Step hen F Joel BP Diastolic 2025-04-25 15:03:00 [place] phen F Joel Weight Measured 2025-04-25 15:03:00 111.60 pounds Mumtaz F Joel Height Measured 2025-04-25 15:03:00 63.00 inches Mumtaz F Joel Body Temperature 2025-04-25 15:03:00 Mumtaz F Joel Heart Rate 2025-04-25 15:03:00 Darline en F Joel Respiratory Rate 2025-04-25 15:03:00 Mumtaz F Joel BP Systolic 2025-04-19 08:55:00 132 mm[Hg] Step hen F Joel BP Diastolic 2025-04-19 08:55:00 85 mm[Hg] [place] phen F Joel Weight Measured 2025-04-19 08:55:00 109.80 pounds Mumtaz F Joel Height Measured 2025-04-19 08:55:00 63.00 inches Mumtaz F Joel Body Temperature 2025-04-19 08:55:00 97.40 degrees Mumtaz F Joel Heart Rate 2025-04-19 08:55:00 82.00 /min Darline en F Joel Respiratory Rate 2025-04-19 08:55:00 18.00 /min Mumtaz F Joel BP Systolic 2025-04-17 10:25:00 127 mm[Hg] Step hen F Joel BP Diastolic 2025-04-17 10:25:00 81 mm[Hg] [place] phen F Joel Weight Measured 2025-04-17 10:25:00 111.40 pounds Mumtaz F Joel Height Measured 2025-04-17 10:25:00 63.00 inches Mumtaz F Joel Body Temperature 2025-04-17 10:25:00 97.80 degrees Mumtaz F Joel Heart Rate 2025-04-17 10:25:00 66.00 /min Darline en F Joel Respiratory Rate 2025-04-17 10:25:00 18.00 /min Mumtaz F Joel BP Systolic 2025-04-10 08:59:00 127 mm[Hg] Step hen F Joel BP Diastolic 2025-04-10 08:59:00 89 mm[Hg] [place] phen F Joel Weight Measured 2025-04-10 08:59:00 110.20 pounds Mumtaz F Joel Height Measured 2025-04-10 08:59:00 63.00 inches Mumtaz F Joel Body Temperature 2025-04-10 08:59:00 97.80 degrees Mumtaz F Joel Heart Rate 2025-04-10 08:59:00 66.00 /min Darline en Lisseth Maldonado Respiratory Rate 2025-04-10 08:59:00 18.00 /min Mumtaz Maldonado Respiratory Rate 2025-04-04 13:51:00 18.00 /min Mumtaz Maldonado BP Systolic 2025-04-04 13:51:00 121 mm[Hg] Nicho Maldonado BP Diastolic 2025-04-04 13:51:00 77 mm[Hg] [place] Maldonado Weight Measured 2025-04-04 13:51:00 114.00 pounds Mumtaz Maldonado Height Measured 2025-04-04 13:51:00 63.00 inches Mumtaz Maldonado Body Temperature 2025-04-04 13:51:00 97.60 degrees Mumtaz Maldonado Heart Rate 2025-04-04 13:51:00 61.00 /min Darline Maldonado Procedures Procedure Date / Time Performed Performing Clinicia n Source COMP. METABOLIC PANEL (25775) 2025-04-23 19:19:00 Elizabeth Howard [facility] CBC WITH DIFF 2025-04-23 19:19:00 Elizabeth Howard [facility] Encounters Start Date/Time End Date/Time Encounter Type Admission Type Attending [facility] Care Facility Care Department Encounter ID Source 2025-05-05 10:46:31 2025-05-05 10:46:[address] [facility] [id number] Mumtaz Maldonado 2025-05-03 13:12:04 2025-05-03 13:12:04 Outpatient [facility] [id number] Mumtaz Maldonado 2025-05-03 00:00:00 2025-05-03 00:00:[address] [facility] [id number] Mumtaz Maldonado 2025-04-26 05:00:00 2025-04-26 09:07:00 Emergency EM Yomi Analysa [facility] [id number] [facility] 2025-04-26 00:00:00 2025-04-26 00:00:[address] [facility] [id number] Mumtaz Maldonado 2025-04-25 14:56:04 2025-04-25 14:56:[address] [facility] [id number] Mumtaz Maldonado 2025-04-25 00:00:00 2025-04-25 00:00:00 Outpatient Visit SFA [id number] Mumtaz Maldonado 2025-04-23 15:37:00 2025-04-23 16:53:00 Emergency EM Patti Day [facility] [id number] [facility] 2025-04-23 13:56:00 2025-04-23 14:55:00 Emergency X [facility] ERT [id number] [facility] 2025-04-19 08:45:25 2025-04-19 08:45:[address] [facility] [id number] Mumtaz Maldonado 2025-04-19 00:00:00 2025-04-19 00:00:00 Outpatient Visit SFA [id number] Mumtaz Maldonado 2025-04-17 10:20:28 2025-04-17 10:20:[address] [facility] [id number] Mumtaz Maldonado 2025-04-17 00:00:00 2025-04-17 00:00:00 Outpatient Visit [facility] [id number] Mumtaz Maldonado 2025-04-10 08:59:35 2025-04-10 08:59:[address] [facility] [id number] Mumtaz Maldonado 2025-04-10 00:00:00 2025-04-10 00:00:00 Outpatient Visit S[facility] [id number] Mumtaz Maldonado 2025-04-04 13:48:56 2025-04-04 13:48:[address] [facility] [id number] Mumtaz Maldonado 2025-04-04 00:00:00 2025-04-04 00:00:[address] [facility] [id number] Mumtaz Maldonado Results Test Description Test Time Test Comments Results Result Co mments Source Mumtaz MaldonadoTHINPREP TIS PAP AND HPV mRNA E6/E7 WITH REFLEX TO HPV 16,18/45 2025-04-28 00:00:00* Test Item Value Reference Range Interpretation Comme nts REPORT STATUS: (test code = 8251-1) DNR GENERAL CATEGORIZATION: (gerson t code = 02931-2) DNR INFECTION: (test code = 50526-8) DNR REVIEW MID LEVEL BUSINESS ANALYST: (te st code = 11819-8) DNR PATHOLOGIST: (test code = 33577-0) DNR HPV mRNA E6/E7 (test code = 68765-4) Not Detected Mumtaz MaldonadoTHINPREP TIS PAP AND HPV mRNA E6/E7 WITH REFLEX TO HPV 16,18/45 2025-04-28 00:00:00* Test Item Value Reference Range Interpretation Comme nts REPORT STATUS: (test code = 8251-1) DNR GENERAL CATEGORIZATION: (gerson t code = 30997-0) DNR INFECTION: (test code = 91401-2) DNR REVIEW MID LEVEL BUSINESS ANALYST: (te st code = 94105-5) DNR PATHOLOGIST: (test code = 33726-0) DNR HPV mRNA E6/E7 (test code = 17733-5) Not Detected Mumtaz MaldonadoCOMPREHENSIVE METABOLIC [id number] 08:22:00* Test Item Value Reference Range Interpretation Comme nts SODIUM (test code = NA) 143 mEq/L 136-145 N POTASSIUM (test code = K) 3.7 mEq/L 3.4-4.5 N CHLORIDE (test code = CL) 106 mEq/L 98-107 N CARBON DIOXIDE (test code = CO2) 27 mEq/L 20-31 N Please note ne w normal range as of Nov 2024 ANION GAP (test code = GAP) 14 10-20 N GLUCOSE (test code = GLU) 82 mg/dL 74-106 N BLOOD UREA NITROGEN (test code = BUN) 9 mg/dL 8-23 N CREATININE (test code = CREAT) 1.0 mg/dL 0.55-1.02 N TOTAL PROTEIN (test code = PROT) 6.7 g/dL 5.7-8.2 N ALBUMIN (test code = ALB) 4.5 g/dL 3.2-4.8 N CALCIUM (test code = CA) 8.9 mg/dL 8.3-10.6 N BILIRUBIN TOTAL (test code = BILT) 0.4 mg/dL 0.3-1.2 N SGOT/AST (test code = AST) 19 units/L < 34 SGPT/ALT (test code = ALT) 16 units/L 10-49 N ALKALINE PHOSPHATASE TOTAL (test code = ALKP) 33 units/L 46-116 L GLOMERULAR FILTRATION RATE (test code = GFR) 69.93 ml/min >60 N The Glomerular Filtration Rate is a calculated parameterbased on serum Creatinine, patient age and sex. GFR valuesless than 60 mL/min/1.73 square meters are indicative ofChronic Kidney Disease. Values less than 15 mL/min/1.73square meters indicate Kidney failure. The calculation forGFR is based on the CKD-EPI (2020) calculation. This formulais race indifferent and is the recommended formula for GFRby the National Kidney Foundation for Adults.The GFR will not calculate if the sex is unknown or if thepatient's age is <18 years. TROPONIN-I (HIGH SENSITIVITY)2025-04-26 08:22:00* Test Item Value Reference Range Interpretation Comme nts TROPONIN-I (HIGH SENSITIVITY ) (test code = TROPI) <2.5 pg/mL < 34 N D-DIMER [id number] 08:17:00* Test Item Value Reference Range Interpretation Comme nts D-DIMER QUANT (test code = DDIMER) 263 ng/mLFEU <519 N D-Dimer results are reported in ng/mL. These unitscorrespond to ng/mL Fibrinogen Equivalent Units (FEU). TheD-Dimer cut-off value is the same as the normal referencerange. A negative D-Dimer result when combined with aclinical assessment of low pretest probability is exclusion of exclusion of Venous Thromboembolism (VTE) Elevated levels of D-Dimer are found in clinical conditionssuch as DVT, PE and disseminated intravascular coagulation(DIC). D-Dimer levels also rise during normal butvery high levels are associated with complications. CBC W/AUTO [id number] 07:51:00* Test Item Value Reference Range Interpretation Comme nts WHITE BLOOD CELL (test code = WBC) 7.1 K/mm3 6.5-12.3 N RED BLOOD CELL (test code = RBC) 4.22 M/mm3 3.51-4.69 N HEMOGLOBIN (test code = HGB) 13.0 g/dL 10.1-13.8 N HEMATOCRIT (test code = HCT) 39.0 % 32.5-41.8 N MEAN CELL VOLUME (test code = MCV) 92.4 fL 84.6-96.6 N MEAN CELL HGB (test code = MCH) 30.8 pg 27.3-33.9 N MEAN CELL HGB CONCETRATION ( test code = MCHC) 33.3 gm/dL 32.0-34.2 N RED CELL DISTRIBUTION WIDTH (test code = RDW) 12.5 % 12.2-16.3 N PLATELET COUNT (test code = PLT) 304 K/mm3 134-363 N MEAN PLATELET VOLUME (test c ode = MPV) 9.6 fL 9.2-12.7 N NEUTROPHIL % (test code = NT%) 56.8 % 57.9-77.3 L LYMPHOCYTE % (test code = LY%) 34.7 % 14.5-29.7 H MONOCYTE % (test code = MO%) 6.7 % 3.6-10.2 N EOSINOPHIL % (test code = EO%) 0.6 % 0.0-3.0 N BASOPHIL % (test code = BA%) 0.8 % 0.1-0.9 N NEUTROPHIL # (test code = NT#) 4.0 K/mm3 LYMPHOCYTE # (test code = LY#) 2.5 K/mm3 MONOCYTE # (test code = MO#) 0.5 K/mm3 EOSINOPHIL # (test code = EO#) 0.04 K/mm3 BASOPHIL # (test code = BA#) 0.1 K/mm3 URINALYSIS [id number] 06:46:00* Test Item Value Reference Range Interpretation Comme nts UA COLOR (test code = COLU) YELLOW YELLOW UA APPEARANCE (test code = APPU) Slightly-Cloudy CLEAR UA GLUCOSE DIPSTICK (test code = DGLUU) NEGATIVE NEG UA BILIRUBIN DIPSTICK (test code = BILU) NEGATIVE NEG UA KETONE DIPSTICK (test cod e = KETU) NEGATIVE NEG UA SPECIFIC GRAVITY (test code = SGU) 1.011 1.001-1.035 N UA BLOOD DIPSTICK (test code = RODRIGO) NEG NEG UA PH DIPSTICK (test code = VALENTIN) 7.0 5-9 UA PROTEIN DIPSTICK (test code = PROU) NEGATIVE NEG UA UROBILINIOGEN DIPSTICK (test code = URO) NEGATIVE mg/dL NEG UA NITRITE DIPSTICK (test code = WICHO) NEG NEG UA LEUKOCYTE ESTERASE DIPSTICK (test code = LEUU) NEG NEG UA WBC (test code = WBCU) 0-2 #/hpf NONE SEEN UA EPITHELIAL CELLS (test code = EPIU) RARE #/HPF RARE-FEW UA BACTERIA (test code = BACU) RARE /HPF RARE-FEW COMP. METABOLIC PANEL (63421)2025-04-23 20:03:27* Test Item Value Reference Range Interpretation Comme nts NA (test code = 0837476064) 138 mmol/L 135-145 K (test code = 3863628896) 4.2 mmol/L 3.5-5.0 CL (test code = 3296850677) 105 mmol/L 98-108 CO2 TOTAL (test code = 5955452150) 21 mmol/L 23-31 L AGAP (test code = 1984123518) 12 2-16 BUN (test code = 2138255755) 11 mg/dL 7-23 GLUCOSE (test code = 1995826209) 118 mg/dL 70-110 H CREATININE (test code = 2160-0) 0.74 mg/dL 0.50-1.04 TOTAL BILI (test code = 6934223078) 0.5 mg/dL 0.1-1.1 CALCIUM (test code = 0495157112) 9.8 mg/dL 8.6-10.6 T PROTEIN (test code = 8073978168) 7.5 g/dL 6.3-8.2 ALBUMIN (test code = 5857648727) 4.7 g/dL 3.5-5.0 ALK PHOS (test code = 4740746246) 32 U/L 34-122 L ALTv (test code = 1742-6) 19 U/L 5-35 AST(SGOT) (test code = 8401206637) 54 U/L 13-40 H eGFR (test code = 80049-1) 100.6 mL/min/1.73m2 CKD-EPI eGFR (2020). Assuming creatinine has been stable day-to-day for at least three months, the eGFR indicates Category G1 (>= 90 mL/min/1.73 m2) Lab Interpretation (test code = 80072-3) Abnormal [facility] WITH [id number] 19:42:30* Test Item Value Reference Range Interpretation Comme nts WBC (test code = 6690-2) 7.99 4.30-11.10 RBC (test code = 789-8) 3.97 3.93-5.25 HGB (test code = 718-7) 12.4 g/dL 11.6-15.0 HCT (test code = 4544-3) 36.5 % 35.7-45.2 MCV (test code = 787-2) 91.9 fL 80.6-95.5 MCH (test code = 785-6) 31.2 pg 25.9-32.8 MCHC (test code = 786-4) 34 g/dL 31.6-35.1 RDW-SD (test code = 38992-8) 42.7 fL 39.0-49.9 RDW-CV (test code = 788-0) 12.6 % 12.0-15.5 PLT (test code = 777-3) 298 166-358 MPV (test code = 93908-8) 9.9 fL 9.5-12.9 NRBC/100 WBC (test code = 7687299729) 0 0.0-10.0 NRBC x10^3 (test code = 4272070516) See_Comment [Automated [employer] EDIa ge] The system which generated this result transmitted reference range: 10*3/?L. The reference range was not used to interpret this result as normal/abnormal. GRAN MAT (NEUT) % (test code = 770-8) 78.8 % IMM GRAN % (test code = 9257175252) 0.4 % LYMPH % (test code = 736-9) 14.8 % MONO % (test code = 5905-5) 5.6 % EOS % (test code = 713-8) 0 % BASO % (test code = 706-2) 0.4 % GRAN MAT x10^3(ANC) (test code = 9640448896) 6.3 10*3/uL 1.88-7.09 IMM GRAN x10^3 (test code = 3724169782) 0.03 10*3/uL 0.00-0.06 LYMPH x10^3 (test code = 731-0) 1.18 10*3/uL 1.32-3.29 L MONO x10^3 (test code = 742-7) 0.45 10*3/uL 0.33-0.92 EOS x10^3 (test code = 711-2) 0.03-0.39 L BASO x10^3 (test code = 704-7) 0.03 10*3/uL 0.01-0.07 Lab Interpretation (test code = 97661-1) [facility] [id number] [facility]:00:00* Test Item Value Reference Range Interpretation Comme nts HEMOGLOBIN A1c (test code = 4548-4) 5.1 % Mumtaz Montanez [id number] 00:00:00* Test Item Value Reference Range Interpretation Comme nts ESTRADIOL (test code = 2243-4) 136 pg/mL Mumtaz Montanez AustinFSH AND [id number] 00:00:00* Test Item Value Reference Range Interpretation Comme nts FSH (test code = 09135-3) 6.9 mIU/mL LH (test code = 36867-5) 2.4 mIU/mL Mumtaz Montanez [id number] 00:00:00* Test Item Value Reference Range Interpretation Comme nts PROLACTIN (test code = 2842-3) 6.8 ng/mL Mumtaz F [id number] 00:00:00* Test Item Value Reference Range Interpretation Comme nts TSH (test code = 3016-3) 1.89 mIU/L Mumtaz F [id number] 00:00:00* Test Item Value Reference Range Interpretation Comme nts ESTRADIOL (test code = 2243-4) 136 pg/mL Mumtaz MaldonadoHEMOGLOBIN [id number] 00:00:00* Test Item Value Reference Range Interpretation Comme nts HEMOGLOBIN A1c (test code = 4548-4) 5.1 % Mumtaz MaldonadoFSH AND [id number] 00:00:00* Test Item Value Reference Range Interpretation Comme nts FSH (test code = 59924-6) 6.9 mIU/mL LH (test code = 12113-7) 2.4 mIU/mL Mumtaz Montanez [id number] 00:00:00* Test Item Value Reference Range Interpretation Comme nts PROLACTIN (test code = 2842-3) 6.8 ng/mL Mumtaz Montanez [id number] 00:00:00* Test Item Value Reference Range Interpretation Comme nts TSH (test code = 3016-3) 1.89 mIU/L Mumtaz Montanez [id number] 00:00:00* Test Item Value Reference Range Interpretation Comme nts ESTRADIOL (test code = 2243-4) 136 pg/mL Mumtaz Montanez AustinHEMOGLOBIN [id number] 00:00:00* Test Item Value Reference Range Interpretation Comme nts HEMOGLOBIN A1c (test code = 4548-4) 5.1 % Mumtaz BrayH AND [id number] 00:00:00* Test Item Value Reference Range Interpretation Comme nts FSH (test code = 55796-0) 6.9 mIU/mL LH (test code = 77964-3) 2.4 mIU/mL Mumtaz Montanez [id number] 00:00:00* Test Item Value Reference Range Interpretation Comme nts PROLACTIN (test code = 2842-3) 6.8 ng/mL Mumtaz Montanez [id number] 00:00:00* Test Item Value Reference Range Interpretation Comme nts TSH (test code = 3016-3) 1.89 mIU/L Mumtaz Montanez AustinHEMOGLOBIN [id number] 00:00:00* Test Item Value Reference Range Interpretation Comme nts HEMOGLOBIN A1c (test code = 4548-4) 5.1 % Mumtaz Montanez [id number] 00:00:00* Test Item Value Reference Range Interpretation Comme nts ESTRADIOL (test code = 2243-4) 136 pg/mL Mumtaz MaldonadoFSH AND [id number] 00:00:00* Test Item Value Reference Range Interpretation Comme nts FSH (test code = 81454-7) 6.9 mIU/mL LH (test code = 55542-3) 2.4 mIU/mL Mumtaz [id number] 00:00:00* Test Item Value Reference Range Interpretation Comme nts PROLACTIN (test code = 2842-3) 6.8 ng/mL Mumtaz [id number] 00:00:00* Test Item Value Reference Range Interpretation Comme nts TSH (test code = 3016-3) 1.89 mIU/L Mumtaz MaldonadoCBC (INCLUDES DIFF/PLT)2025-04-11 00:00:00* Test Item Value Reference Range Interpretation Comme nts WHITE BLOOD CELL COUNT (test code = 6690-2) 5.9 Thousand/uL RED BLOOD CELL COUNT (test code = 789-8) 4.80 Million/uL HEMOGLOBIN (test code = 718-7) 15.0 g/dL HEMATOCRIT (test code = 4544-3) 45.3 % MCV (test code = 787-2) 94.4 fL MCH (test code = 785-6) 31.3 pg MCHC (test code = 786-4) 33.1 g/dL RDW (test code = 788-0) 12.7 % PLATELET COUNT (test code = 777-3) 340 Thousand/uL MPV (test code = 776-5) 10.2 fL ABSOLUTE NEUTROPHILS (test code = 751-8) 3469 cells/uL ABSOLUTE BAND NEUTROPHILS (test code = 07369-4) DNR cells/uL ABSOLUTE METAMYELOCYTES (gerson t code = 22562-8) DNR cells/uL ABSOLUTE MYELOCYTES (test code = 69895-6) DNR cells/uL ABSOLUTE PROMYELOCYTES (test code = 07552-5) DNR cells/uL ABSOLUTE LYMPHOCYTES (test code = 731-0) 1693 cells/uL ABSOLUTE MONOCYTES (test cod e = 742-7) 496 cells/uL ABSOLUTE EOSINOPHILS (test code = 711-2) 171 cells/uL ABSOLUTE BASOPHILS (test cod e = 704-7) 71 cells/uL ABSOLUTE BLASTS (test code = 26471-0) DNR cells/uL ABSOLUTE NUCLEATED RBC (test code = 50789-2) DNR cells/uL NEUTROPHILS (test code = 770-8) 58.8 % BAND NEUTROPHILS (test code = 764-1) DNR % METAMYELOCYTES (test code = 740-1) DNR % MYELOCYTES (test code = 749-2) DNR % PROMYELOCYTES (test code = 783-1) DNR % LYMPHOCYTES (test code = 736-9) 28.7 % REACTIVE LYMPHOCYTES (test code = 89052-7) DNR % MONOCYTES (test code = 5905-5) 8.4 % EOSINOPHILS (test code = 713-8) 2.9 % BASOPHILS (test code = 706-2) 1.2 % BLASTS (test code = 709-6) DNR % NUCLEATED RBC (test code = 16996-4) DNR /100WBC COMMENT(S) (test code = 8251-1) DNR Mumtaz F JoelCOMPREHENSIVE METABOLIC [id number] 00:00:00* Test Item Value Reference Range Interpretation Comme nts GLUCOSE (test code = 2345-7) 85 mg/dL UREA NITROGEN (BUN) (test code = 3094-0) 12 mg/dL CREATININE (test code = 2160-0) 0.80 mg/dL EGFR (test code = 93874-2) 91 mL/min/1.73m2 BUN/CREATININE RATIO (test code = 3097-3) SEE NOTE: (calc) SODIUM (test code = 2951-2) 138 mmol/L POTASSIUM (test code = 2823-3) 4.7 mmol/L CHLORIDE (test code = 2075-0) 103 mmol/L CARBON DIOXIDE (test code = 2027-9) 28 mmol/L CALCIUM (test code = 60549-1) 10.2 mg/dL PROTEIN, TOTAL (test code = 2885-2) 7.6 g/dL ALBUMIN (test code = 1751-7) 4.9 g/dL GLOBULIN (test code = 15779-9) 2.7 g/dL(calc) ALBUMIN/GLOBULIN RATIO (test code = 1759-0) 1.8 (calc) BILIRUBIN, TOTAL (test code = 1975-2) 0.5 mg/dL ALKALINE PHOSPHATASE (test code = 6768-6) 38 U/L AST (test code = 1920-8) 19 U/L ALT (test code = 1742-6) 13 U/L Mumtaz MaldonadoLIPID [id number] 00:00:00* Test Item Value Reference Range Interpretation Comme nts CHOLESTEROL, TOTAL (test cod e = 2093-3) 181 mg/dL HDL CHOLESTEROL (test code = 2085-9) 68 mg/dL TRIGLYCERIDES (test code = 2571-8) 98 mg/dL LDL-CHOLESTEROL (test code = 56414-9) 94 mg/dL(calc) CHOL/HDLC RATIO (test code = 9830-1) 2.7 (calc) NON HDL CHOLESTEROL (test code = 46500-2) 113 mg/dL(calc) Mumtaz MaldonadoHIV 1/2 ANTIGEN/ANTIBODY,FOURTH GENERATION [id number] 00:00:00* Test Item Value Reference Range Interpretation Comme nts HIV AG/AB, 4TH GEN (test cod e = 75544-8) NON-REACTIVE Mumtaz MaldonadoCBC (INCLUDES DIFF/PLT)2025-04-11 00:00:00* Test Item Value Reference Range Interpretation Comme nts WHITE BLOOD CELL COUNT (test code = 6690-2) 5.9 Thousand/uL RED BLOOD CELL COUNT (test code = 789-8) 4.80 Million/uL HEMOGLOBIN (test code = 718-7) 15.0 g/dL HEMATOCRIT (test code = 4544-3) 45.3 % MCV (test code = 787-2) 94.4 fL MCH (test code = 785-6) 31.3 pg MCHC (test code = 786-4) 33.1 g/dL RDW (test code = 788-0) 12.7 % PLATELET COUNT (test code = 777-3) 340 Thousand/uL MPV (test code = 776-5) 10.2 fL ABSOLUTE NEUTROPHILS (test code = 751-8) 3469 cells/uL ABSOLUTE BAND NEUTROPHILS (test code = 36703-7) DNR cells/uL ABSOLUTE METAMYELOCYTES (gerson t code = 29274-0) DNR cells/uL ABSOLUTE MYELOCYTES (test code = 58647-4) DNR cells/uL ABSOLUTE PROMYELOCYTES (test code = 49746-5) DNR cells/uL ABSOLUTE LYMPHOCYTES (test code = 731-0) 1693 cells/uL ABSOLUTE MONOCYTES (test cod e = 742-7) 496 cells/uL ABSOLUTE EOSINOPHILS (test code = 711-2) 171 cells/uL ABSOLUTE BASOPHILS (test cod e = 704-7) 71 cells/uL ABSOLUTE BLASTS (test code = 15031-5) DNR cells/uL ABSOLUTE NUCLEATED RBC (test code = 38116-0) DNR cells/uL NEUTROPHILS (test code = 770-8) 58.8 % BAND NEUTROPHILS (test code = 764-1) DNR % METAMYELOCYTES (test code = 740-1) DNR % MYELOCYTES (test code = 749-2) DNR % PROMYELOCYTES (test code = 783-1) DNR % LYMPHOCYTES (test code = 736-9) 28.7 % REACTIVE LYMPHOCYTES (test code = 79399-6) DNR % MONOCYTES (test code = 5905-5) 8.4 % EOSINOPHILS (test code = 713-8) 2.9 % BASOPHILS (test code = 706-2) 1.2 % BLASTS (test code = 709-6) DNR % NUCLEATED RBC (test code = 26711-9) DNR /100WBC COMMENT(S) (test code = 8251-1) DNR Mumtaz Montanez JoelCOMPREHENSIVE METABOLIC [id number] 00:00:00* Test Item Value Reference Range Interpretation Comme nts GLUCOSE (test code = 2345-7) 85 mg/dL UREA NITROGEN (BUN) (test code = 3094-0) 12 mg/dL CREATININE (test code = 2160-0) 0.80 mg/dL EGFR (test code = 10700-1) 91 mL/min/1.73m2 BUN/CREATININE RATIO (test code = 3097-3) SEE NOTE: (calc) SODIUM (test code = 2951-2) 138 mmol/L POTASSIUM (test code = 2823-3) 4.7 mmol/L CHLORIDE (test code = 2075-0) 103 mmol/L CARBON DIOXIDE (test code = 2027-9) 28 mmol/L CALCIUM (test code = 34902-1) 10.2 mg/dL PROTEIN, TOTAL (test code = 2885-2) 7.6 g/dL ALBUMIN (test code = 1751-7) 4.9 g/dL GLOBULIN (test code = 60782-1) 2.7 g/dL(calc) ALBUMIN/GLOBULIN RATIO (test code = 1759-0) 1.8 (calc) BILIRUBIN, TOTAL (test code = 1975-2) 0.5 mg/dL ALKALINE PHOSPHATASE (test code = 6768-6) 38 U/L AST (test code = 1920-8) 19 U/L ALT (test code = 1742-6) 13 U/L Mumtaz MaldonadoLIPID [id number] 00:00:00* Test Item Value Reference Range Interpretation Comme nts CHOLESTEROL, TOTAL (test cod e = 2093-3) 181 mg/dL HDL CHOLESTEROL (test code = 2085-9) 68 mg/dL TRIGLYCERIDES (test code = 2571-8) 98 mg/dL LDL-CHOLESTEROL (test code = 55323-9) 94 mg/dL(calc) CHOL/HDLC RATIO (test code = 9830-1) 2.7 (calc) NON HDL CHOLESTEROL (test code = 92168-2) 113 mg/dL(calc) Mumtaz MaldonadoHIV 1/2 ANTIGEN/ANTIBODY,FOURTH GENERATION [id number] 00:00:00* Test Item Value Reference Range Interpretation Comme nts HIV AG/AB, 4TH GEN (test cod e = 42602-2) NON-REACTIVE Mumtaz MaldonadoCBC (INCLUDES DIFF/PLT)2025-04-11 00:00:00* Test Item Value Reference Range Interpretation Comme nts WHITE BLOOD CELL COUNT (test code = 6690-2) 5.9 Thousand/uL RED BLOOD CELL COUNT (test code = 789-8) 4.80 Million/uL HEMOGLOBIN (test code = 718-7) 15.0 g/dL HEMATOCRIT (test code = 4544-3) 45.3 % MCV (test code = 787-2) 94.4 fL MCH (test code = 785-6) 31.3 pg MCHC (test code = 786-4) 33.1 g/dL RDW (test code = 788-0) 12.7 % PLATELET COUNT (test code = 777-3) 340 Thousand/uL MPV (test code = 776-5) 10.2 fL ABSOLUTE NEUTROPHILS (test code = 751-8) 3469 cells/uL ABSOLUTE BAND NEUTROPHILS (test code = 73512-0) DNR cells/uL ABSOLUTE METAMYELOCYTES (gerson t code = 67474-6) DNR cells/uL ABSOLUTE MYELOCYTES (test code = 89948-8) DNR cells/uL ABSOLUTE PROMYELOCYTES (test code = 43159-3) DNR cells/uL ABSOLUTE LYMPHOCYTES (test code = 731-0) 1693 cells/uL ABSOLUTE MONOCYTES (test cod e = 742-7) 496 cells/uL ABSOLUTE EOSINOPHILS (test code = 711-2) 171 cells/uL ABSOLUTE BASOPHILS (test cod e = 704-7) 71 cells/uL ABSOLUTE BLASTS (test code = 03822-3) DNR cells/uL ABSOLUTE NUCLEATED RBC (test code = 97988-1) DNR cells/uL NEUTROPHILS (test code = 770-8) 58.8 % BAND NEUTROPHILS (test code = 764-1) DNR % METAMYELOCYTES (test code = 740-1) DNR % MYELOCYTES (test code = 749-2) DNR % PROMYELOCYTES (test code = 783-1) DNR % LYMPHOCYTES (test code = 736-9) 28.7 % REACTIVE LYMPHOCYTES (test code = 70302-6) DNR % MONOCYTES (test code = 5905-5) 8.4 % EOSINOPHILS (test code = 713-8) 2.9 % BASOPHILS (test code = 706-2) 1.2 % BLASTS (test code = 709-6) DNR % NUCLEATED RBC (test code = 21631-9) DNR /100WBC COMMENT(S) (test code = 8251-1) DNR Mumtaz Montanez JoelCOMPREHENSIVE METABOLIC [id number] 00:00:00* Test Item Value Reference Range Interpretation Comme nts GLUCOSE (test code = 2345-7) 85 mg/dL UREA NITROGEN (BUN) (test code = 3094-0) 12 mg/dL CREATININE (test code = 2160-0) 0.80 mg/dL EGFR (test code = 95909-8) 91 mL/min/1.73m2 BUN/CREATININE RATIO (test code = 3097-3) SEE NOTE: (calc) SODIUM (test code = 2951-2) 138 mmol/L POTASSIUM (test code = 2823-3) 4.7 mmol/L CHLORIDE (test code = 2075-0) 103 mmol/L CARBON DIOXIDE (test code = 2027-) 28 mmol/L CALCIUM (test code = 86809-7) 10.2 mg/dL PROTEIN, TOTAL (test code = 2885-2) 7.6 g/dL ALBUMIN (test code = 1751-7) 4.9 g/dL GLOBULIN (test code = 40790-0) 2.7 g/dL(calc) ALBUMIN/GLOBULIN RATIO (test code = 1759-0) 1.8 (calc) BILIRUBIN, TOTAL (test code = 1975-2) 0.5 mg/dL ALKALINE PHOSPHATASE (test code = 6768-6) 38 U/L AST (test code = 1920-8) 19 U/L ALT (test code = 1742-6) 13 U/L Mumtaz MaldonadoLIPID [id number] 00:00:00* Test Item Value Reference Range Interpretation Comme nts CHOLESTEROL, TOTAL (test cod e = 3-3) 181 mg/dL HDL CHOLESTEROL (test code = 2084-9) 68 mg/dL TRIGLYCERIDES (test code = 2571-8) 98 mg/dL LDL-CHOLESTEROL (test code = 72014-1) 94 mg/dL(calc) CHOL/HDLC RATIO (test code = 9830-1) 2.7 (calc) NON HDL CHOLESTEROL (test code = 65623-1) 113 mg/dL(calc) Mumtaz MaldonadoHIV 1/2 ANTIGEN/ANTIBODY,FOURTH GENERATION [id number] 00:00:00* Test Item Value Reference Range Interpretation Comme nts HIV AG/AB, 4TH GEN (test cod e = 42289-0) NON-REACTIVE Mumtaz MaldonadoCBC (INCLUDES DIFF/PLT)2025-04-11 00:00:00* Test Item Value Reference Range Interpretation Comme nts WHITE BLOOD CELL COUNT (test code = 6690-2) 5.9 Thousand/uL RED BLOOD CELL COUNT (test code = 789-8) 4.80 Million/uL HEMOGLOBIN (test code = 718-7) 15.0 g/dL HEMATOCRIT (test code = 4544-3) 45.3 % MCV (test code = 787-2) 94.4 fL MCH (test code = 785-6) 31.3 pg MCHC (test code = 786-4) 33.1 g/dL RDW (test code = 788-0) 12.7 % PLATELET COUNT (test code = 777-3) 340 Thousand/uL MPV (test code = 776-5) 10.2 fL ABSOLUTE NEUTROPHILS (test code = 751-8) 3469 cells/uL ABSOLUTE BAND NEUTROPHILS (test code = 80364-1) DNR cells/uL ABSOLUTE METAMYELOCYTES (gerson t code = 47776-7) DNR cells/uL ABSOLUTE MYELOCYTES (test code = 97488-7) DNR cells/uL ABSOLUTE PROMYELOCYTES (test code = 10067-1) DNR cells/uL ABSOLUTE LYMPHOCYTES (test code = 731-0) 1693 cells/uL ABSOLUTE MONOCYTES (test cod e = 742-7) 496 cells/uL ABSOLUTE EOSINOPHILS (test code = 711-2) 171 cells/uL ABSOLUTE BASOPHILS (test cod e = 704-7) 71 cells/uL ABSOLUTE BLASTS (test code = 53506-1) DNR cells/uL ABSOLUTE NUCLEATED RBC (test code = 93549-4) DNR cells/uL NEUTROPHILS (test code = 770-8) 58.8 % BAND NEUTROPHILS (test code = 764-1) DNR % METAMYELOCYTES (test code = 740-1) DNR % MYELOCYTES (test code = 749-2) DNR % PROMYELOCYTES (test code = 783-1) DNR % LYMPHOCYTES (test code = 736-9) 28.7 % REACTIVE LYMPHOCYTES (test code = 86299-2) DNR % MONOCYTES (test code = 5905-5) 8.4 % EOSINOPHILS (test code = 713-8) 2.9 % BASOPHILS (test code = 706-2) 1.2 % BLASTS (test code = 709-6) DNR % NUCLEATED RBC (test code = 98972-2) DNR /100WBC COMMENT(S) (test code = 8251-1) DNR Mumtaz F AustinCOMPREHENSIVE METABOLIC [id number] 00:00:00* Test Item Value Reference Range Interpretation Comme nts GLUCOSE (test code = 2345-7) 85 mg/dL UREA NITROGEN (BUN) (test code = 3094-0) 12 mg/dL CREATININE (test code = 2160-0) 0.80 mg/dL EGFR (test code = 63040-2) 91 mL/min/1.73m2 BUN/CREATININE RATIO (test code = 3097-3) SEE NOTE: (calc) SODIUM (test code = 2951-2) 138 mmol/L POTASSIUM (test code = 2823-3) 4.7 mmol/L CHLORIDE (test code = 2075-0) 103 mmol/L CARBON DIOXIDE (test code = 2027-9) 28 mmol/L CALCIUM (test code = 88456-1) 10.2 mg/dL PROTEIN, TOTAL (test code = 2885-2) 7.6 g/dL ALBUMIN (test code = 1751-7) 4.9 g/dL GLOBULIN (test code = 84408-1) 2.7 g/dL(calc) ALBUMIN/GLOBULIN RATIO (test code = 1759-0) 1.8 (calc) BILIRUBIN, TOTAL (test code = 1975-2) 0.5 mg/dL ALKALINE PHOSPHATASE (test code = 6768-6) 38 U/L AST (test code = 1920-8) 19 U/L ALT (test code = 1742-6) 13 U/L Mumtaz MaldonadoLIPID [id number] 00:00:00* Test Item Value Reference Range Interpretation Comme nts CHOLESTEROL, TOTAL (test cod e = 2093-3) 181 mg/dL HDL CHOLESTEROL (test code = 2085-9) 68 mg/dL TRIGLYCERIDES (test code = 2571-8) 98 mg/dL LDL-CHOLESTEROL (test code = 34258-5) 94 mg/dL(calc) CHOL/HDLC RATIO (test code = 9830-1) 2.7 (calc) NON HDL CHOLESTEROL (test code = 30303-5) 113 mg/dL(calc) Mumtaz Montanez JoelHIV 1/2 ANTIGEN/ANTIBODY,FOURTH GENERATION [id number] 00:00:00* Test Item Value Reference Range Interpretation Comme nts HIV AG/AB, 4TH GEN (test cod e = 64065-2) NON-REACTIVE Mumtaz Montanez JoelCBC (INCLUDES DIFF/PLT)2025-04-11 00:00:00* Test Item Value Reference Range Interpretation Comme nts WHITE BLOOD CELL COUNT (test code = 6690-2) 5.9 Thousand/uL RED BLOOD CELL COUNT (test code = 789-8) 4.80 Million/uL HEMOGLOBIN (test code = 718-7) 15.0 g/dL HEMATOCRIT (test code = 4544-3) 45.3 % MCV (test code = 787-2) 94.4 fL MCH (test code = 785-6) 31.3 pg MCHC (test code = 786-4) 33.1 g/dL RDW (test code = 788-0) 12.7 % PLATELET COUNT (test code = 777-3) 340 Thousand/uL MPV (test code = 776-5) 10.2 fL ABSOLUTE NEUTROPHILS (test code = 751-8) 3469 cells/uL ABSOLUTE BAND NEUTROPHILS (test code = 21687-2) DNR cells/uL ABSOLUTE METAMYELOCYTES (gerson t code = 29937-4) DNR cells/uL ABSOLUTE MYELOCYTES (test code = 56862-5) DNR cells/uL ABSOLUTE PROMYELOCYTES (test code = 52353-3) DNR cells/uL ABSOLUTE LYMPHOCYTES (test code = 731-0) 1693 cells/uL ABSOLUTE MONOCYTES (test cod e = 742-7) 496 cells/uL ABSOLUTE EOSINOPHILS (test code = 711-2) 171 cells/uL ABSOLUTE BASOPHILS (test cod e = 704-7) 71 cells/uL ABSOLUTE BLASTS (test code = 19877-4) DNR cells/uL ABSOLUTE NUCLEATED RBC (test code = 79601-4) DNR cells/uL NEUTROPHILS (test code = 770-8) 58.8 % BAND NEUTROPHILS (test code = 764-1) DNR % METAMYELOCYTES (test code = 740-1) DNR % MYELOCYTES (test code = 749-2) DNR % PROMYELOCYTES (test code = 783-1) DNR % LYMPHOCYTES (test code = 736-9) 28.7 % REACTIVE LYMPHOCYTES (test code = 69332-7) DNR % MONOCYTES (test code = 5905-5) 8.4 % EOSINOPHILS (test code = 713-8) 2.9 % BASOPHILS (test code = 706-2) 1.2 % BLASTS (test code = 709-6) DNR % NUCLEATED RBC (test code = 80993-5) DNR /100WBC COMMENT(S) (test code = 8251-1) DNR Mumtaz MaldonadoCOMPREHENSIVE METABOLIC [id number] 00:00:00* Test Item Value Reference Range Interpretation Comme nts GLUCOSE (test code = 2345-7) 85 mg/dL UREA NITROGEN (BUN) (test code = 3094-0) 12 mg/dL CREATININE (test code = 2160-0) 0.80 mg/dL EGFR (test code = 26840-5) 91 mL/min/1.73m2 BUN/CREATININE RATIO (test code = 3097-3) SEE NOTE: (calc) SODIUM (test code = 2951-2) 138 mmol/L POTASSIUM (test code = 2823-3) 4.7 mmol/L CHLORIDE (test code = 2075-0) 103 mmol/L CARBON DIOXIDE (test code = 8-9) 28 mmol/L CALCIUM (test code = 40650-5) 10.2 mg/dL PROTEIN, TOTAL (test code = 2885-2) 7.6 g/dL ALBUMIN (test code = 1751-7) 4.9 g/dL GLOBULIN (test code = 74645-1) 2.7 g/dL(calc) ALBUMIN/GLOBULIN RATIO (test code = 1759-0) 1.8 (calc) BILIRUBIN, TOTAL (test code = 1975-2) 0.5 mg/dL ALKALINE PHOSPHATASE (test code = 6768-6) 38 U/L AST (test code = 1920-8) 19 U/L ALT (test code = 1742-6) 13 U/L Mumtaz MaldonadoLIPID [id number] 00:00:00* Test Item Value Reference Range Interpretation Comme nts CHOLESTEROL, TOTAL (test cod e = 2093-3) 181 mg/dL HDL CHOLESTEROL (test code = 2085-9) 68 mg/dL TRIGLYCERIDES (test code = 2571-8) 98 mg/dL LDL-CHOLESTEROL (test code = 41206-3) 94 mg/dL(calc) CHOL/HDLC RATIO (test code = 9830-1) 2.7 (calc) NON HDL CHOLESTEROL (test code = 00110-4) 113 mg/dL(calc) Mumtaz MaldonadoHIV 1/2 ANTIGEN/ANTIBODY,FOURTH GENERATION [id number] 00:00:00* Test Item Value Reference Range Interpretation Comme nts HIV AG/AB, 4TH GEN (test cod e = 11037-0) NON-REACTIVE Mumtaz MaldonadoCBC (INCLUDES DIFF/PLT)2025-04-11 00:00:00* Test Item Value Reference Range Interpretation Comme nts WHITE BLOOD CELL COUNT (test code = 6690-2) 5.9 Thousand/uL RED BLOOD CELL COUNT (test code = 789-8) 4.80 Million/uL HEMOGLOBIN (test code = 718-7) 15.0 g/dL HEMATOCRIT (test code = 4544-3) 45.3 % MCV (test code = 787-2) 94.4 fL MCH (test code = 785-6) 31.3 pg MCHC (test code = 786-4) 33.1 g/dL RDW (test code = 788-0) 12.7 % PLATELET COUNT (test code = 777-3) 340 Thousand/uL MPV (test code = 776-5) 10.2 fL ABSOLUTE NEUTROPHILS (test code = 751-8) 3469 cells/uL ABSOLUTE BAND NEUTROPHILS (test code = 73571-8) DNR cells/uL ABSOLUTE METAMYELOCYTES (gerson t code = 66879-1) DNR cells/uL ABSOLUTE MYELOCYTES (test code = 72955-1) DNR cells/uL ABSOLUTE PROMYELOCYTES (test code = 16702-3) DNR cells/uL ABSOLUTE LYMPHOCYTES (test code = 731-0) 1693 cells/uL ABSOLUTE MONOCYTES (test cod e = 742-7) 496 cells/uL ABSOLUTE EOSINOPHILS (test code = 711-2) 171 cells/uL ABSOLUTE BASOPHILS (test cod e = 704-7) 71 cells/uL ABSOLUTE BLASTS (test code = 48056-5) DNR cells/uL ABSOLUTE NUCLEATED RBC (test code = 32326-0) DNR cells/uL NEUTROPHILS (test code = 770-8) 58.8 % BAND NEUTROPHILS (test code = 764-1) DNR % METAMYELOCYTES (test code = 740-1) DNR % MYELOCYTES (test code = 749-2) DNR % PROMYELOCYTES (test code = 783-1) DNR % LYMPHOCYTES (test code = 736-9) 28.7 % REACTIVE LYMPHOCYTES (test code = 38086-8) DNR % MONOCYTES (test code = 5905-5) 8.4 % EOSINOPHILS (test code = 713-8) 2.9 % BASOPHILS (test code = 706-2) 1.2 % BLASTS (test code = 709-6) DNR % NUCLEATED RBC (test code = 30021-3) DNR /100WBC COMMENT(S) (test code = 8251-1) DNR Mumtaz MaldonadoCOMPREHENSIVE METABOLIC [id number] 00:00:00* Test Item Value Reference Range Interpretation Comme nts GLUCOSE (test code = 2345-7) 85 mg/dL UREA NITROGEN (BUN) (test code = 3094-0) 12 mg/dL CREATININE (test code = 2160-0) 0.80 mg/dL EGFR (test code = 69481-4) 91 mL/min/1.73m2 BUN/CREATININE RATIO (test code = 3097-3) SEE NOTE: (calc) SODIUM (test code = 2951-2) 138 mmol/L POTASSIUM (test code = 2823-3) 4.7 mmol/L CHLORIDE (test code = 2075-0) 103 mmol/L CARBON DIOXIDE (test code = 2027-9) 28 mmol/L CALCIUM (test code = 61493-5) 10.2 mg/dL PROTEIN, TOTAL (test code = 2885-2) 7.6 g/dL ALBUMIN (test code = 1751-7) 4.9 g/dL GLOBULIN (test code = 41909-1) 2.7 g/dL(calc) ALBUMIN/GLOBULIN RATIO (test code = 1759-0) 1.8 (calc) BILIRUBIN, TOTAL (test code = 1975-2) 0.5 mg/dL ALKALINE PHOSPHATASE (test code = 6768-6) 38 U/L AST (test code = 1920-8) 19 U/L ALT (test code = 1742-6) 13 U/L Mumtaz Montanez AustinLIPID [id number] 00:00:00* Test Item Value Reference Range Interpretation Comme nts CHOLESTEROL, TOTAL (test cod e = 2093-3) 181 mg/dL HDL CHOLESTEROL (test code = 2085-9) 68 mg/dL TRIGLYCERIDES (test code = 2571-8) 98 mg/dL LDL-CHOLESTEROL (test code = 62225-3) 94 mg/dL(calc) CHOL/HDLC RATIO (test code = 9830-1) 2.7 (calc) NON HDL CHOLESTEROL (test code = 53452-9) 113 mg/dL(calc) Mumtaz MaldonadoHIV 1/2 ANTIGEN/ANTIBODY,FOURTH GENERATION [id number] 00:00:00* Test Item Value Reference Range Interpretation Comme nts HIV AG/AB, 4TH GEN (test cod e = 69585-4) NON-REACTIVE Mumtaz Maldonado Notes Date/Time Note Provider Source Mumtaz Maldonado [facility]2025-07-16 [id number] [facility] [address], [place] [address] PATIENT NAME: LITA JAIMES ADMIT DATE: 04/26/25 ACCOUNT NO: [id number] ROOM NO: AGE: 49 SEX: F ADMITTING PHYSICIAN: ATTENDING PHYSICIAN: Dipika Celaya MD Order: [id number] Test Reason : CHEST PAIN Test Date/Time Stamp: ThuApr 26 2025 06:42:12 Blood Pressure : */* mmHG Vent. Rate : 55 BPM Atrial Rate : 55 BPM P-R Int : 116 ms QRS Dur : 88 ms QT Int : 428 ms P-R-T Axes : 77 80 69 degrees QTcB Int : 409 ms Sinus bradycardia Otherwise normal ECG No previous ECGs available Confirmed by ANT MAYA, MEGHA ([id number]) on 04/26/2025 2:31:01 PM Referred By: Self Referred Confirmed by: MEGHA WOLFE MD at 1431 PATIENT NAME: LITA JAIMES 05:56:00 [facility] ([facility] EMERGENCY PROVIDER REPORT REPORT#:[id number] REPORT STATUS: Signed DATE:04/26/25 TIME: 0556 PATIENT: LITA JAIMES UNIT #: [id number] ROOM/BED: : 77 AGE: 49 SEX: F PCP PHYS: No Primary or Family Physician SERVICE AUTHOR: Endy Castorenabel Benitez DO REP SRV REP SRV TM: 0556 * ALL edits or amendments must be made on the electronic/computer document * Ileana Castorena 04/26/25 0556: HPI-General Illness General Initial Greet Date/Time 04/26/25 0513 Presentation Chief Complaint Sore throat, shortness of breath, leg pain Free Text HPI Notes Free Text HPI Notes The patient is a previously healthy 49-year-old female who is presenting with a sore throat, shortness of breath, low back pain and right leg pain which began 4 days ago. Her symptoms began after she received a Depo-Provera shot for dysfunctional uterine bleeding. She was seen at the ER last weekend and she tested negative for strep. She received a CTA chest to evaluate for PE and it was negative. She received IV steroids for possible allergic reaction and her symptoms briefly in proved but they returned 3 days ago. Review of Systems ROS Statements All systems rev neg except as marked. Past Medical History - Adult Stated Complaint RXN TO DEPO SHOT, SOB, PAIN IN R LEG AND ABD Allergies Coded Allergies: No Known Allergies (04/23/25) Home Medications Active Scripts predniSONE 50 MG PO DAILY predniSONE 50 MG PO DAILY #5 TABS Prov: 04/23/25 Additional Medical History Dysfunctional uterine bleeding Additional Surgical History Tubal ligation Alcohol Use Denies EtOH use Drug Use Marijuana Smoking status for patients 13 years old or older: Never Smoker Physical Exam Vital Signs Vital Signs First Documented: Result Date Time Pulse Ox 99 04/26 0506 B/P 138/87 04/26 0506 O2 Delivery Room air 04/26 0506 Temp 36.8 04/26 0506 Pulse 90 04/26 0506 Resp 19 04/26 0506 Last Documented: Result Date Time Pulse Ox 99 04/26 0506 B/P 138/87 04/26 0506 O2 Delivery Room air 04/26 0506 Temp 36.8 04/26 0506 Pulse 90 / 0506 Resp 04/26 0506 Review of Vital Signs Reviewed Free Text PE Notes Free Text PE Notes Free Text PE Notes Physical Exam General/Const General/Const Awake, Alert, No acute distress, Well appearing MS Head Head Atraumatic, Normocephalic Eyes Eyes Atraumatic, No scleral icterus Ears/Nose/Throat Ears/Nose/Throat Atraumatic, Airway patent, Mucous membranes moist, Pharynx NL MS Neck Neck Atraumatic, Supple, No meningismus, Full range of motion Resp/Chest Respiratory/Chest Atraumatic, Breath sounds NL, Breath sounds = bilat, No respiratory distress Cardiovascular Cardiovascular Heart rate NL, Regular rhythm, Heart sounds NL, No gallop, No murmurs Abdomen/GI Abdomen/GI Atraumatic, Soft, Non-tender, McBurney's non-tender, No guarding MS Back Back Atraumatic, No muscle spasm MS Upper Extrem Upper Extremity/MS Atraumatic, Inspection NL, No swelling MS Lower Extrem Lower Ext/Pelvis/MS Atraumatic, Inspection NL, No swelling, Non-tender Skin Skin Atraumatic, Color NL, No rash, Warm Neurologic Neurologic Oriented X3, Speech NL, No motor deficits, No sensory deficits Re-Evaluation MDM Free Text MDM Notes Free Text MDM Notes Differential diagnosis includes COVID 19, viral syndrome, pneumonia, pneumothorax, PE, CHF exacerbation, STEMI, NSTEMI, pulmonary edema Patient Discharge Departure Vital Signs/Condition Vital Signs First Documented: Result Date Time Pulse Ox 99 / 0506 B/P 138/87 / 0506 O2 Delivery Room air 04/26 0506 Temp 36.8 04/26 0506 Pulse 90 04/26 0506 Resp 19 04/26 0506 Last Documented: Result Date Time Pulse Ox 99 / 0506 B/P 138/87 / 0506 O2 Delivery Room air 04/26 0506 Temp 36.8 / 0506 Pulse 90 04/26 0506 Resp 19 04/26 0506 All vital signs available at the time of this entry have been reviewed. Clinical Impression Clinical Impression Primary Impression: Dyspnea Secondary Impressions: Leg pain Pt/Provider Handoff Handoff Note This patient's care has been transferred to and accepted by [Dr. Celaya at 0600]. We discussed: the patient's chief complaint; labs and imaging that have been completed and those that are still pending; procedures that have been completed and those remaining to be done; any treatment provided and the patient 's response to treatment; any significant change in condition; input from consultants if any; the treatment plan prior to the transfer of care. The accepting physician will follow up on all pending labs and imaging and make any necessary changes to the current impression and/or treatment plan. The accepting physician is now responsible for the patient's care and final disposition. Dipika Celaya 04/26/25 0852: HPI-General Illness Free Text HPI Notes Free Text HPI Notes ex smoker Interpretation Diagnostics Lab Results Interpretation Results Laboratory Tests 04/26/25 0711: [Embedded Image Not Available] Laboratory Tests: 04/26 04/26 0711 0503 Chemistry Sodium (136 - 145 mEq/L) 143 Potassium (3.4 - 4.5 mEq/L) 3.7 Chloride (98 - 107 mEq/L) 106 Carbon Dioxide (20 - 31 mEq/L) 27 Anion Gap (10 - 20) 14 BUN (8 - 23 mg/dL) 9 Creatinine (0.55 - 1.02 mg/dL) 1.0 Glomerular Filtr Rate (>60 ml/min) 69.93 Glucose (74 - 106 mg/dL) 82 Calcium (8.3 - 10.6 mg/dL) 8.9 Total Bilirubin (0.3 - 1.2 mg/dL) 0.4 AST (< 34 units/L) 19 ALT (10 - 49 units/L) 16 Total Alk Phosphatase (46 - 116 units/L) 33 L Troponin I High Sens (< 34 pg/mL) <2.5 Total Protein (5.7 - 8.2 g/dL) 6.7 Albumin (3.2 - 4.8 g/dL) 4.5 Coagulation D-Dimer (<519 ng/mLFEU) 263 Hematology WBC (6.5 - 12.3 K/mm3) 7.1 RBC (3.51 - 4.69 M/mm3) 4.22 Hgb (10.1 - 13.8 g/dL) 13.0 Hct (32.5 - 41.8 %) 39.0 MCV (84.6 - 96.6 fL) 92.4 MCH (27.3 - 33.9 pg) 30.8 MCHC (32.0 - 34.2 gm/dL) 33.3 RDW (12.2 - 16.3 %) 12.5 Plt Count (134 - 363 K/mm3) 304 MPV (9.2 - 12.7 fL) 9.6 Neut % (Auto) (57.9 - 77.3 %) 56.8 L Lymph % (Auto) (14.5 - 29.7 %) 34.7 H Calloway % (Auto) (3.6 - 10.2 %) 6.7 Eos % (Auto) (0.0 - 3.0 %) 0.6 Baso % (Auto) (0.1 - 0.9 %) 0.8 Neut # (Auto) (K/mm3) 4.0 Lymph # (Auto) (K/mm3) 2.5 Calloway # (Auto) (K/mm3) 0.5 Eos # (Auto) (K/mm3) 0.04 Baso # (Auto) (K/mm3) 0.1 Urines Urine Color (YELLOW) YELLOW Urine Appearance (CLEAR) Slightly-Cloudy Urine pH (5 - 9) 7.0 Ur Specific [place] (1.001 - 1.035) 1.011 Urine Protein (NEG) NEGATIVE Urine Glucose (UA) (NEG) NEGATIVE Urine Ketones (NEG) NEGATIVE Urine Blood (NEG) NEG Urine Nitrite (NEG) NEG Urine Bilirubin (NEG) NEGATIVE Urine Urobilinogen (NEG mg/dL) NEGATIVE Ur Leukocyte Esterase (NEG) NEG Urine WBC (NONE SEEN #/hpf) 0-2 Ur Epithelial Cells (RARE - FEW #/HPF) RARE Urine Bacteria (RARE - FEW /HPF) RARE Recent Impressions: RADIOLOGY - XR CHEST 1 V 04/26 0601 Report Impression - Status: SIGNED Entered: 04/26/2025 0617 IMPRESSION: No acute abnormality. Impression By: Ruddy Lee M.D ULTRASOUND - DUP VEIN UNI RT 04/26 0610 Report Impression - Status: SIGNED Entered: 04/26/2025 0643 IMPRESSION: No deep venous thrombosis (DVT) in the femoropopliteal veins. No DVT in the visible portions of the calf veins. Impression By: Ruddy Lee M.D Re-Evaluation MDM Re-Evaluation/Progress #1 Text/Dict Note Symptoms resolved Workup unremarkable She has follow-up today with her it security analyst, which her PCP helped her get due to concern for COPD ED Course Medication(s) Ordered Medication(s) Ordered: Central Nervous System Agents Sig/Jony Start time Last Medication Dose Route Stop Time Status Admin Ketorolac 30 MG ONCE ONE 04/26 615 DC 04/26 Tromethamine IV 04/26 0616 0718 Gastrointestinal Drugs Sig/Jony Start time Last Medication Dose Route Stop Time Status Admin Ondansetron HCl 4 MG X1ED STA 04/26 07 DC 04/26 IV 04/26 0711 0717 Patient Discharge Departure Disposition Decision Discharge )( Discharged to Home Yes )( Time 0852 )( Date 04/26/25 Discharge/Care Plan Counseled Regarding Diagnosis, Lab results, Imaging studies, Need for follow-up, When to return to ED Patient Instructions ED Shortness of Breath (Dyspnea) Additional Instructions Keep your appointment today with the it security analyst. at [phone] at 0854 [facility] #:[id number] END OF [id number] 00:00:[address] [facility]2025-07-15 00:00:00 [facility]2025-07-13 14:40:03 Patient agitated at staff, yelling in long narratives stating she can't breath and having tightness in her throat. Patient displaying no signs of shortness of breath, respiratory distress, appropriate color for race, and unlabored breathing. Patient did not allow staff to perform thorough assessment of complaints. Kiel SARKAR attempted to deescalate, but unsuccessful. Patient left ambulatory, steady gait, no ataxia noted, GCS 15, and A&Ox4. [facility] 14[facility]37:01 [id number] 14:26:28 Pt refused covid/ viral swab. Dr. Howard notified. Martita Rangel RNWAMB - [id number] 13:51:47 CC: patient presents to the ER with complaints of a possible allergic reaction to the depo injection that began about 6 days ago. Patient states she is experiencing right lower quadrant abdominal pain, pain in the right buttocks, pain behind the right thigh, pain in bilateral ankle areas, throat pain, and shortness of breath. Patient was seen at [facility] ER and given steroids and morphine with relief. Awake, alert, oriented, resp reg unlabored, skin warm and dry, color appropriate for race, moves all ext without difficulty, amb without assistance. Appears in no distress. Effie Neal [place] - [id number] 00:00:00 [facility]2025-07-07 00:00:00 [facility]2025-06-30 00:00:00 [facility]2025-06-24 00:00:00 [facility]
[2025-07-08] MEDS ORDERED: MORPHINE 4 MG/ML SYR ONE (13:20)
[2025-07-08] MEDS ORDERED: ONDANSETRON 4 MG/2 ML VIAL ONE (13:20)
[2025-07-08] MEDS ORDERED: NA CHLORIDE 0.9% 1,000 ML ONE (13:20)
[2025-07-08 13:25] LABS: Absolute Lymphocytes (CBC) 1.5 K/uL (0.7-4.9); Hematocrit 38.2 % (36.0-45.0); Hemoglobin 12.6 g/dL (12.0-15.0); MCH 28.9 pg (27.0-35.0); MCHC 33.1 g/dL (32.0-36.0); MCV 87.5 fL (80-100); MPV 7.9 fL (7.6-11.3); Nucleated RBC Absolute Count 0.0 (0-0); Nucleated Red Blood Cells % 0.0 % (0-0); RBC Red Blood Cell Count 4.36 M/uL (3.86-4.86); White Blood Count 4.70 thou/uL (4.3-10.9)
[2025-07-08 13:47] LABS: ALT/SGPT 20.0 U/L (13-56); Albumin 3.4 g/dL (3.4-5.0); Albumin/Globulin Ratio 1.0 (1.1-1.8); Alkaline Phosphatase 31.0 U/L (45-117); Anion Gap 9.1 mEq/L (5.0-15.0); BUN Blood Urea Nitrogen 11.0 mg/dL (7-18); Globulin 3.5 g/dL (2.3-3.5); Glucose Level 92.0 mg/dL (74-106); Lipase 24.0 U/L (13-75)
[2025-07-08 13:48] LABS: AST/SGOT 17.0 U/L (15-37); Potassium 4.1 mEq/L (3.5-5.1)
--- NOTE | 2025-07-08 14:32 | RAD REPORT ---
EXAMINATION: Transvaginal Study Probe CLINICAL INDICATION: Vaginal bleeding TECHNIQUE: Real-time ultrasonography of the pelvis was performed transvaginally. Color and spectral D oppler evaluation of the ovaries was performed. COMPARISON: 2010. FINDINGS: The uterus measures 8 x 4 x 5 cm. The endometrial stripe measures 1.1 cm. A fibroid is not seen. Nabothian cyst within the cervix. Right ovary normal in size and echotexture. 2.9 cm simple ovarian cyst. No follow-up imaging recommen ded. Blood flow to the right ovary. Left ovary normal in size and echotexture. Right and left adnexa unremarkable No significant free fluid IMPRESSION: 2.9 cm right ovarian cyst without significant free fluid
--- NOTE | 2025-07-08 14:32 | RAD REPORT ---
EXAMINATION: US bilateral LOWER EXTREMITY VENOUS DOPPLER CLINICAL INDICATION: Leg pain TECHNIQUE: Sonographic evaluation of the veins of the lower extremity bilaterally formed.Grayscale, c olor and spectral analysis performed on all vessels COMPARISON: April 2025 FINDINGS: The common femoral, superficial femoral, greater saphenous, popliteal and posterior tibial veins bila terally are compressible and demonstrate augmentation. Doppler demonstrates good flow. IMPRESSION: No evidence of deep venous thrombosis involving either lower extremity
[2025-07-08 14:34] LABS: Sqamous Epithelial None Seen /HPF (None Seen); Urine Culture Reflex Order NOT NEEDED; Urine Microscopic Reflex YN ORDER UMIC; Urine Yeast (Budding) Trace /HPF (None Seen)
--- NOTE | 2025-07-08 14:55 | RAD REPORT ---
EXAMINATION: CTA CHEST PE CLINICAL INDICATION: Shortness of breath TECHNIQUE: 100 cc 370 Isovue administered intravenously. This examination was performed according to an angiographic protocol with 3D post-processing. This involves 3D reconstructions, MIPs, volume rendered images and/or shaded surface rendering. One or more of the following dose reduction techniqu es were used: Automated exposure control, adjustment of the mA and/or kV according to patient size, and/or iterative reconstruction. Unless otherwise specified, incidental findings do not require dedic ated imaging follow-up. [id number]. COMPARISON: April 2025 FINDINGS: A pulmonary embolus is not seen. An aortic aneurysm not noted. No pleural effusion. No pericardial effusion. Minimal mucous plugging right lung. IMPRESSION: No evidence of a pulmonary embolism
--- NOTE | 2025-07-08 15:12 | EDPHYS ---
Physician Documentation [facility] Name: Autumn Bhandari Age: 49 yrs Sex: Female : 1975 Arrival Date: 07/08/2025 Time: 12:14 Bed 18 Private MD: ED Physician Timothy Dempsey HPI: 07/08 17:11 This 49 yrs old Female presents to ER via Ambulatory with complaints of dr5 Diarrhea, Vaginal Bleeding, Headache. 17:11 The patient presents to the emergency department with nausea, vomiting. Onset: The dr5 symptoms/episode began/occurred 1 month(s) ago. Patient is a 49-year-old female with no past medical history coming in with 1 month of vaginal bleeding that has gotten worse in the last 2 weeks and has worsened today. Patient states that she was on Depo and is no longer on it and was told by her academic coordinator that she needs to wait until July 12, 2025 for further management. Patient reports she thinks that she has a blood clot in her lung as well as in her legs. Patient reports multiple complaints including headache, diarrhea, vaginal bleeding with clots. Patient denies chest pain, syncope.. 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 - Infectious Disease History:: Denies. - Social history:: Smoking status: Patient denies any tobacco usage or history of. ROS: 17:11 Constitutional: as per hpi dr5 Exam: 17:11 Constitutional: This is a well developed, well nourished patient who is awake, alert, dr5 and in no acute distress. Head/Face: Normocephalic, atraumatic. Eyes: Pupils equal round and reactive to light, extra-ocular motions intact. Lids and lashes normal. Conjunctiva and sclera are non-icteric and not injected. Cornea within normal limits. Periorbital areas with no swelling, redness, or edema. Neck: Trachea midline, no thyromegaly or masses palpated, and no cervical lymphadenopathy. Supple, full range of motion without nuchal rigidity, or vertebral point tenderness. No Meningismus. Chest/axilla: Normal chest wall appearance and motion. Nontender with no deformity. No lesions are appreciated. Cardiovascular: Regular rate and rhythm with a normal S1 and S2. Normal PMI, no JVD. No pulse deficits. Respiratory: Lungs have equal breath sounds bilaterally, clear to auscultation. No rales, rhonchi or wheezes noted. No increased work of breathing, no retractions or nasal flaring. Back: No spinal tenderness. No costovertebral tenderness. Full range of motion. Skin: Warm, dry with normal turgor. Normal color with no rashes, no lesions, and no evidence of cellulitis. MS/ Extremity: Pulses equal, no cyanosis. Neurovascular intact. Full, normal range of motion. Neuro: Awake and alert, GCS 15, oriented to person, place, time, and situation. Cranial nerves II-XII grossly intact. Motor strength 5/5 in all extremities. Sensory grossly intact. Cerebellar exam normal. Normal gait. Vital Signs: 12:32 BP 120 / 71; Pulse 76; Resp 16; Temp 97.1; Pulse Ox 100% ; Weight 54.43 kg; Height 5 dd2 ft. 3 in. ; Pain 5/10; 13:30 BP 120 / 68; Pulse 70; Resp 16; Pulse Ox 100% on R/A; ar8 14:43 BP 123 / 86; Pulse 77; Resp 16; Pulse Ox 100% ; Pain 2/10; ar8 14:45 Pain 2/10; ar8 15:15 BP 125 / 82; Pulse 74; Resp 15; Pulse Ox 100% ; Pain 2/10; ar8 12:32 Body Mass Index 21.26 (54.43 kg, 160.02 cm) dd2 12:32 Pain Scale: Adult dd2 14:43 Pain Scale: Adult ar8 14:45 Pain Scale: Adult ar8 15:15 Pain Scale: Adult ar8 MDM: 12:17 Medical Screening Exam initiated dr5 17:11 Differential diagnosis: Nonspecific abd pain, Ovarian cyst, PE, DVT, , anemia, dr5 acute kidney injury. Data reviewed: vital signs, nurses notes, lab test result(s), CBC, white blood cell count, hemoglobin, hematocrit, platelets, electrolytes, sodium, potassium, chloride, serum bicarbonate, BUN, creatinine, serum glucose, urinalysis, hematuria, radiologic studies, CT scan, ultrasound. Consideration of Admission/Observation Escalation of care including admission/observation considered. Escalation considered patient found to be anemic or abnormality on CT for PE or ultrasound studies for DVT.. I considered the following discharge prescriptions or medication management in the emergency department I discussed and recommended Over The Counter medications, Medications were administered in the Emergency Department. See MAR. Historians other than the Patient: Spouse/Significant Other: at bedside. Care significantly affected by the following Social Determinants of Health: Poor access to healthcare and/or lack of insurance, Poor access to transportation, Problems related to employment. Counseling: I had a detailed discussion with the patient and/or guardian regarding the historical points, exam findings, and any diagnostic results supporting the discharge/admit diagnosis, the presence of at least one elevated blood pressure reading (>120/80) during this emergency department visit, lab results, radiology results, the need for outpatient follow up, for definitive care, an OB/Gyne specialist, to return to the emergency department if symptoms worsen or persist or if there are any questions or concerns that arise at home. Medication response: Response to treatment: the patient's symptoms have resolved after treatment, the patient's condition has returned to base line, the patient is now symptom free. Special discussion: Based on the patient's Hx, exam, and Dx evaluation, there is no indication for emergent surgery or inpatient Tx. It is understood by the patient/guardian that if the Sx's persist or worsen they need to return immediately for re-evaluation. I discussed with the patient/guardian in detail that at this point there is no indication for admission to the hospital. It is understood, however, that if the symptoms persist or worsen the patient needs to return immediately for re-evaluation. Based on the history and exam findings, there is no indication for further emergent testing or inpatient evaluation. I discussed with the patient/guardian the need to see the OB Gyne specialist for further evaluation of the symptoms. ED course: Patient's blood work and CT and ultrasound results printed and given to patient to take with her back to her academic coordinator. Patient found to have ovarian cyst and not anemic. CT PE was negative as well as DVT studies were negative on ultrasound. Patient states that she feels much better after morphine. Will have patient follow-up with academic coordinator. All questions answered. Strict ER precautions given.. 07/08 12:36 Order name: CBC with Diff; Complete Time: 13:27 [facility] 07/08 12:36 Order name: CMP; Complete Time: 14:02 [facility] 07/08 12:36 Order name: Lipase; Complete Time: 14:02 [facility] 07/08 12:36 Order name: Test, Urine; Complete Time: 14:42 [facility] 07/08 12:36 Order name: UA Rfx Triston Cult if indicated; Complete Time: 14:42 [facility] 07/08 12:45 Order name: US Extremity Venous W Compression Misael; Complete Time: 14:42 [facility] 07/08 12:45 Order name: CT Chest For PE Angio; Complete Time: 15:06 [facility] 07/08 12:45 Order name: US Transvaginal Study (Probe); Complete Time: 14:42 [facility] 07/08 12:36 Order name: IV Saline Lock; Complete Time: 13:18 [facility] 07/08 12:36 Order name: Labs collected and sent; Complete Time: 13:18 dr5 Administered Medications: 14:00 Drug: NS 0.9% IV 1000 ml IV at 1 bolus Per protocol; to be given as a bolus over 60 ar8 minutes Route: IV; Rate: 1 bolus; Site: right forearm; 15:15 Follow up: Response: No adverse reaction; IV Status: Completed infusion; IV Intake: ar8 1000ml 14:05 Drug: Ondansetron IVP 4 mg IVP once; over 2 minutes Route: IVP; Site: right forearm; ar8 14:44 Follow up: Response: No adverse reaction ar8 14:07 Drug: morphine IVP or IV 4 mg IVP once over 4 mins Route: IVP; Infused Over: 4 mins; ar8 Site: right forearm; 14:45 Follow up: Response: No adverse reaction; Pain is decreased ar8 14:45 Follow up: Pain 2/10 Adult ar8 Disposition Summary: 07/08/25 15:11 Discharge Ordered Notes: Location: Home dr5 Condition: Stable dr5 Diagnosis - Other ovarian cysts dr5 Followup: dr5 - With: Emergency Department - When: As needed - Reason: Worsening of condition Followup: dr5 - With: Katelyn Rojas MD - When: 1 - 2 days - Reason: Recheck today's complaints, Continuance of care, Re-evaluation by your physician Discharge Instructions: - Discharge Summary Sheet dr5 - Ovarian Cyst dr5 Forms: - Medication Reconciliation Form dr5 - Patient Portal Instructions dr5 - Leadership Thank You Letter dr5 Prescriptions: - Ibuprofen 800 mg Oral Tablet - take 1 tablet ORAL route every 12 hours As needed take with food; 20 tablet; dr5 Refills: 0, Product Selection Permitted Addendum: 07/13/2025 06:58 Co-signature as Attending Physician, Timothy Dempsey MD I reviewed the patient's care r n provided by the Advanced Practice Provider and agree with the diagnosis and treatment plan. Signatures: Dispatcher [employer] EDMS Timothy Dempsey MD MD rn DAVIS, DIANA RN RN dd2 Vance Olivarez, MOTORCYCLE DELIVERER-C MOTORCYCLE DELIVERER-Cdr5 Duy Ruiz RN RN ar8 Corrections: (The following items were deleted from the chart) 07/08 12:37 12:37 CBC+H.LAB.BRZ ordered. EDMS EDMS 12:37 12:37 COMPREHENSIVE METABOLIC PANEL+C.LAB.BRZ ordered. EDMS EDMS 12:37 12:37 LIPASE+C.LAB.BRZ ordered. EDMS EDMS 12:37 12:37 Test, Urine+UC.LAB.BRZ ordered. EDMS EDMS 12:37 12:37 UA Rfx Triston Cult if indicated+U.LAB.BRZ ordered. EDMS EDMS 12:45 12:45 Extrem Venous W Compression Misael+US.RAD.BRZ ordered. EDMS EDMS 12:45 12:45 Chest For PE Angio+CT.RAD.BRZ ordered. EDMS EDMS 12:45 12:45 Transvaginal Study (Probe)+US.RAD.BRZ ordered. EDMS EDMS
--- NOTE | 2025-07-08 15:12 | ER ---
Nurse's Notes [facility] Name: Autumn Bhandari Age: 49 yrs Sex: Female : 1975 Arrival Date: 07/08/2025 Time: 12:14 Bed 18 Private MD: Diagnosis: Other ovarian cysts Presentation: 07/08 12:32 Chief complaint: Patient states: HEAVY VAGINAL BLEEDING WITH CLOTS X 1 MONTH, WORSE dd2 TODAY. PT REPORTS TAKING THE DEPO SHOT IN APRIL, NAUSEA THAT BEGAN YESTERDAY ADN MARIA DE JESUS LEG CRAMPS, DIARRHEA AND HEADACHE THAT BEGAN TODAY. Coronavirus screen: At this time, the client does not indicate any symptoms associated with coronavirus-19. Ebola Screen: No symptoms or risks identified at this time. Initial Sepsis Screen: Does the patient meet any 2 criteria? No. Patient's initial sepsis screen is negative. Does the patient have a suspected source of infection? No. Patient's initial sepsis screen is negative. Risk Assessment: Do you want to hurt yourself or someone else? Patient reports no desire to harm self or others. Onset of symptoms was June 06, 2025. 12:32 Method Of Arrival: Ambulatory dd2 12:32 Acuity: FLETCHER 3 dd2 Triage Assessment: 12:34 General: Appears uncomfortable, Behavior is calm. Pain: Complains of pain in suprapubic dd2 area, right leg and left leg, head. Neuro: Reports headache. GI: Reports lower abdominal pain, cramping, diarrhea, nausea. : Reports vaginal bleeding that is bright red, with clots, heavy flow. 12:34 Musculoskeletal: Reports pain in right leg and left leg. 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 - Infectious Disease History:: Denies. - Social history:: Smoking status: Patient denies any tobacco usage or history of. Screenin:38 [facility] ED Fall Risk Assessment (Adult) History of falling in the last 3 months, ar8 including since admission No falls in past 3 months (0 pts) Confusion or Disorientation No (0 pts) Intoxicated or Sedated No (0 pts) Impaired Gait No (0 pts) Mobility Assist Device Used No (0 pt) Altered Elimination No (0 pt) Score/Fall Risk Level 0 - 2 = Low Risk Oriented to surroundings, Maintained a safe environment. Abuse screen: Denies threats or abuse. Nutritional screening: No deficits noted. Tuberculosis screening: No symptoms or risk factors identified. Assessment: 13:08 Reassessment: Patient and/or family updated on plan of care and expected duration. Pain ll1 level reassessed. Vital Signs: 12:32 BP 120 / 71; Pulse 76; Resp 16; Temp 97.1; Pulse Ox 100% ; Weight 54.43 kg; Height 5 dd2 ft. 3 in. ; Pain 5/10; 13:30 BP 120 / 68; Pulse 70; Resp 16; Pulse Ox 100% on R/A; ar8 14:43 BP 123 / 86; Pulse 77; Resp 16; Pulse Ox 100% ; Pain 2/10; ar8 14:45 Pain 2/10; ar8 15:15 BP 125 / 82; Pulse 74; Resp 15; Pulse Ox 100% ; Pain 2/10; ar8 12:32 Body Mass Index 21.26 (54.43 kg, 160.02 cm) dd2 12:32 Pain Scale: Adult dd2 14:43 Pain Scale: Adult ar8 14:45 Pain Scale: Adult ar8 15:15 Pain Scale: Adult ar8 ED Course: 12:16 Patient arrived in ED. ts1 12:17 Vance Olivarez FNP-C [facility] 12:17 Timothy Dempsey MD is Attending Physician. dr5 12:34 Triage completed. dd2 12:34 Arm band placed on right wrist. dd2 13:07 Patient placed in an exam room, on a stretcher. ll1 13:17 Duy Ruiz, ANTONINA is Primary Nurse. ar8 13:18 CBC with Diff Sent. em1 13:18 CMP Sent. em1 13:18 Lipase Sent. em1 13:18 Initial lab(s) drawn, by me, sent to lab. Inserted saline lock: 20 gauge in right em1 forearm, using aseptic technique. Blood collected. Flushed with 10 mL NS. 13:38 US at bedside. ar8 13:38 Bed in low position. Call light in reach. Side rails up X2. Provided Education on: plan ar8 of care. 13:38 No provider procedures requiring assistance completed. ar8 14:25 US Extremity Venous W Compression Maria De Jesus In Process Unspecified. EDMS 14:25 US Transvaginal Study (Probe) In Process Unspecified. EDMS 14:35 CT Chest For PE Angio In Process Unspecified. EDMS 14:43 Patient moved back from CT. ar8 15:10 Katelyn Rojas MD is Referral Physician. dr5 15:22 IV discontinued, intact, bleeding controlled, No redness/swelling at site. Pressure ar8 dressing applied. Administered Medications: 14:00 Drug: NS 0.9% IV 1000 ml IV at 1 bolus Per protocol; to be given as a bolus over 60 ar8 minutes Route: IV; Rate: 1 bolus; Site: right forearm; 15:15 Follow up: Response: No adverse reaction; IV Status: Completed infusion; IV Intake: ar8 1000ml 14:05 Drug: Ondansetron IVP 4 mg IVP once; over 2 minutes Route: IVP; Site: right forearm; ar8 14:44 Follow up: Response: No adverse reaction ar8 14:07 Drug: morphine IVP or IV 4 mg IVP once over 4 mins Route: IVP; Infused Over: 4 mins; ar8 Site: right forearm; 14:45 Follow up: Response: No adverse reaction; Pain is decreased ar8 14:45 Follow up: Pain 2/10 Adult ar8 Medication: 13:38 VIS not applicable for this client. ar8 Intake: 15:15 IV: 1000ml; Total: 1000ml. ar8 Outcome: 15:11 Discharge ordered by . dr5 15:22 Discharged to home ambulatory, ar8 15:22 Condition: stable 15:22 Discharge instructions given to patient, significant other, Instructed on discharge instructions, follow up and referral plans. medication usage, Demonstrated understanding of instructions, follow-up care, medications, Prescriptions given X 1, 15:23 Patient left the ED. ar8 Signatures: Dispatcher [employer] Jamie Castano em1 Denis Johnston RN RN ll1 Katherine Ortiz PAS PAS ts1 LINUS CAMPBELL RN RN dd2 Vance Olivarez, CONSULTING SERVICES MANAGER-C CONSULTING SERVICES MANAGER-Cdr5 Duy Ruiz RN RN ar8
[2025-07-08 15:29] VITALS: TEMP 97.1; O2SAT 100
[2025-07-08 15:36] VITALS: BP 125/82
== END 2025-07-08 15:23 | disposition home or self-care (01) ==
LOC: ER 12:14
DX: N83.291 Other ovarian cyst, right side (principal); R19.7 Diarrhea, unspecified; R51.9 Headache, unspecified; R11.2 Nausea with vomiting, unspecified
CPT/HCPCS: 36415; 71275; 76830; 80053; 81001; 81025; 83690; 85025; 93970; 96361; 96374; 96375; 99285; J2405; J7030; Q9967